=== PATIENT | female | born 1970 | race Caucasian/White ===

== ENCOUNTER 2019-12-24 08:28 | Inpatient (IN) ==
--- NOTE | 2019-12-07 15:10 | PAT Medication Instructions ---
Medication Instructions Date of Service December 07, 2019 Home Medications Botox 1 dose IM UD Probiotic 1 cap PO TID albuterol sulfate 1 inh INHALATION QID PRN ascorbic acid (vitamin C) [Vitamin C] 500 mg PO QAM budesonide-formoterol [Symbicort] 2 puff INHALATION BID buspirone [BuSpar] 15 mg PO TID calcium 600 mg PO BID cholecalciferol (vitamin D3) [Vitamin D3] 25 mcg PO QAM empagliflozin [Jardiance] 10 mg PO QAM levomilnacipran [Fetzima] 120 mg PO QAM magnesium 15 mg PO HS montelukast [Singulair] 10 mg PO QAM oxcarbazepine [Trileptal] 300 mg PO HS potassium chloride 20 meq PO BID sitagliptin [Januvia] 100 mg PO QAM spironolactone [Aldactone] 25 mg PO BID Continue as directed Botox 1 dose IM UD DO NOT take the morning of surgery Probiotic 1 cap PO TID ascorbic acid (vitamin C) [Vitamin C] 500 mg PO QAM calcium 600 mg PO BID cholecalciferol (vitamin D3) [Vitamin D3] 25 mcg PO QAM empagliflozin [Jardiance] 10 mg PO QAM montelukast [Singulair] 10 mg PO QAM potassium chloride 20 meq PO BID sitagliptin [Januvia] 100 mg PO QAM spironolactone [Aldactone] 25 mg PO BID Take morning of surgery With a small sip of water, OTHERWISE NOTHING TO EAT OR DRINK AFTER MIDNIGHT: albuterol sulfate 1 inh INHALATION QID PRN (use if needed; please bring with you to hospital day of surgery if possible) budesonide-formoterol [Symbicort] 2 puff INHALATION BID buspirone [BuSpar] 15 mg PO TID levomilnacipran [Fetzima] 120 mg PO QAM Take evening before surgery Probiotic 1 cap PO TID albuterol sulfate 1 inh INHALATION QID PRN (if needed) budesonide-formoterol [Symbicort] 2 puff INHALATION BID buspirone [BuSpar] 15 mg PO TID calcium 600 mg PO BID magnesium 15 mg PO HS oxcarbazepine [Trileptal] 300 mg PO HS potassium chloride 20 meq PO BID spironolactone [Aldactone] 25 mg PO BID Other Notes If you have any questions please call us at [phone] or [phone] or [phone] or [phone]
--- NOTE | 2019-12-11 13:40 | Anesthesiology Consultation ---
Date of Service December 11, 2019 Assessment & Plan (1) Encounter for pre-operative examination: Chart Review Chart Review: Pending: Refer to Additional Notes / Consult section (pending surgeon ordered PCP clearance, possible stress/ECHO test, and preop Covid testing ) and Patient seen in Pre Admission Testing Awaiting for possible stress test/ECHO (faxing for copy if available) and PCP clearance. - Check BSG AM DOS Per PAT appt on 12/11/19, pt denies any recent travel. No known Covid positive contacts or Covid related symptoms. Per patient- scheduled for Covid testing 12/19/19. Educated on importance of self quarantining, social distancing and wearing mask in public both for the patient and household contacts. Teaching & Discussion Pre-Anesthesia Teaching/Discussion Notes: Instructed NPO after midnight before surgery,except medications with 15 cc of water. Medication instructions provided according to the [facility] guidelines. History Surgery Operation Date: 12/24/19 09:05 Proposed Procedures p L2-L3 Decompression Fusion, L3-S1 Hardware Removal, Spinal Cord Monitoring - Aime Norman DO Height/Weight Height: 5 ft 4 in Weight: 101.2 kg Allergies Allergy/AdvReac Type Severity Reaction Status Date / Time chicken derived Allergy Unknown Found with Verified 12/11/19 13:36 allergy testing- does still eat chicken latex Allergy Unknown RASH,ITCHY Verified 12/03/19 12:49 milk Allergy Unknown UNKNOWN Verified 12/03/19 12:49 prednisone Allergy Unknown UNKNOWN Verified 12/03/19 12:49 simvastatin Allergy Unknown UNKNOWN- Verified 12/03/19 12:49 [id number] Allergy Rash Verified 12/03/19 12:49 [From Ajovy Autoinjector] [id number] Allergy Rash Verified 12/03/19 12:49 [From Emgality Pen] Dust Allergy Unknown SOB,ITCHY Uncoded 12/03/19 12:49 Medications Home Medications Medication Instructions Recorded Confirmed Last Taken Botox 1 dose IM UD 12/03/19 12/03/19 Unknown Probiotic 1 cap PO TID 12/03/19 12/03/19 Unknown albuterol sulfate 1 inh INHALATION QID PRN 12/03/19 12/03/19 Unknown ascorbic acid (vitamin C) [Vitamin 500 mg PO QAM 12/03/19 12/03/19 Unknown C] budesonide-formoterol [Symbicort] 2 puff INHALATION BID 12/03/19 12/03/19 Unknown buspirone [BuSpar] 15 mg PO TID 12/03/19 12/03/19 Unknown calcium 600 mg PO BID 12/03/19 12/03/19 Unknown cholecalciferol (vitamin D3) 25 mcg PO QAM 12/03/19 12/03/19 Unknown [Vitamin D3] empagliflozin [Jardiance] 10 mg PO QAM 12/03/19 12/03/19 Unknown levomilnacipran [Fetzima] 120 mg PO QAM 12/03/19 12/03/19 Unknown magnesium 15 mg PO HS 12/03/19 12/03/19 Unknown montelukast [Singulair] 10 mg PO QAM 12/03/19 12/03/19 Unknown oxcarbazepine [Trileptal] 300 mg PO HS 12/03/19 12/03/19 Unknown potassium chloride 20 meq PO BID 12/03/19 12/03/19 Unknown sitagliptin [Januvia] 100 mg PO QAM 12/03/19 12/03/19 Unknown spironolactone [Aldactone] 25 mg PO BID 12/03/19 12/03/19 Unknown Past Medical History Medical History Anxiety Stable and controlled Asthma uses PRN inh 1 x wk on average - breathing stable and controlled Depression DM type 2 (diabetes mellitus, type 2) NIDDM- well controlled and stable Fatty liver Follows with liver specialist- LFTs stable Fibromyalgia Stable History of DVT (deep vein thrombosis) 2016 - RUE -- r/t picc line - was on AC x months - no issues x years since being off AC History of kidney stones No current issues Migraines Post-operative nausea and vomiting Sleep apnea non compliant with CPAP Exercise / Class Metabolic Activity II 4-5 Yardwork/Stairs/Walk up hill (ONE FLIGHT OF STAIRS - NO CHEST PAIN OR SOB ) Past Family History Family History Father Diabetes Mother Diabetes Grandmother (Paternal) Diabetes Grandfather (Paternal) Colon cancer Past Surgical History Surgical History History of abdominoplasty History of cholecystectomy History of colonoscopy History of cystoscopy with stone extraction History of esophagogastroduodenoscopy (EGD) History of foot surgery Rt History of hysterectomy with unilateral oophorectomy History of lumbar surgery x 2 History of lumpectomy of left breast History of myringotomy BMT History of tonsillectomy History of tooth extraction History of umbilical hernia repair Hx of fusion of cervical spine ROM WNL S/P PICC central line placement removed (had for infection following back surgery) Past Anesthesia History No Hx of Anesthesia Complications (with exception to PONV ) and No Family Hx of Anesthesia Complications History of PONV History of PONV and Hx of Motion Sickness (especially with long trips ) Social History Smoking Status: Never smoker Do You Dip or Chew Tobacco: No Hx Alcohol Use: No Hx Substance Use: No substance use type: does not use Review of Systems Patient denies chest pain, shortness of breath, dyspnea on exertion, reflux, cough, wheezing, palpitations. No hx of seizures, stroke, RI. No hx of blood transfusions Physical Exam Vital Signs VITALS BP 113/79 P 98 TEMP 98.1 SP02 100% RESP 16 Constitutional no acute distress ENMT Mouth: no TMJ clicking Thyromental Distance: > or= 3.5 Finger Breadths (3.5) Mallampati Class: II Full dentures on top Missing all bottom teeth Neck + thick neck (mild ); neck extension not limited Respiratory normal respiratory effort; no respiratory distress Auscultation: lungs clear to auscultation bilaterally; no wheezes Cardiovascular Rate/Rhythm: regular rate and regular rhythm Heart Sounds: no murmur Vessels: no carotid bruit Musculoskeletal Spine: no pain with cervical ROM Neurologic moves all extremities Psychiatric Orientation: alert Testing Laboratory Results PT 10.0 Seconds (9.0-12.0) 12/11/19 14:06 INR 0.9 (0.9-1.1) 12/11/19 14:06 APTT 26.4 Seconds (21.0-31.0) 12/11/19 14:06 Hemoglobin A1c 6.9 % (4.5-5.6) H 12/11/19 14:06 Urine Color Yellow 12/11/19 14:06 Urine Appearance Clear (Clear) 12/11/19 14:06 Urine pH 5.5 (4.5-7.5) 12/11/19 14:06 Ur Specific [place] 1.017 (1.000-1.030) 12/11/19 14:06 Urine Protein Negative (Negative) 12/11/19 14:06 Urine Glucose (UA) 3+ (Negative) H 12/11/19 14:06 Urine Ketones Negative (Negative) 12/11/19 14:06 Urine Nitrite Negative (Negative) 12/11/19 14:06 Ur Leukocyte Esterase Negative (Negative) 12/11/19 14:06 Blood Type A Positive 12/11/19 14:06 Antibody Screen NEGATIVE 12/11/19 14:06 11/29/19= WBC: 8.93 H/H: 15.4/48.4 PLATELETS: 323 SODIUM: 138 POTASSIUM: 3.8 CHLORIDE: 107 CO2: 25.0 BUN: 13.0 CREATININE: 1.00 GLUCOSE: 115 Electrocardiogram Date: 12/11/19 Sinus tachycardia with frequent PVCs at 115 bpm. Low voltage QRS. Compared to EKG from Feb 04, 2014- PVCs are now present, nonspecific T wave abnormality no longer evident in inferior leads per cardio. (By personal visual inspection- HR is between 70-100 bpm - not 115bpm. EKG will be sent for PCP to review at clearance appt) Chest X-Ray Date: 12/10/19 Findings: + NAD
--- NOTE | 2019-12-11 14:39 | XRay Report ---
TWO VIEW CHEST CLINICAL HISTORY: Preoperative examination. FINDINGS: PA and lateral chest radiographs are compared to study dated 03/03/2014. The cardiomediasti nal silhouette is unremarkable. The lungs and pleural spaces are clear. There is no pneumothorax. Th e bony thorax appears intact. Fusion hardware is noted in the lower cervical spine. IMPRESSION: No active disease in the chest. ACT 112: Negative or not required by law. Electronically signed by: Abhilash Squires M.D. 12/11/2019 2:38 PM
[2019-12-11 16:18] LABS: Appearance Urine Clear (Clear); Bilirubin Urine Negative (Negative); Blood Urine Negative (Negative); Color Urine Yellow; Glucose Urine UA 3+ (Negative); Ketones Urine Negative (Negative); Leukocyte Esterase Urine Negative (Negative); Nitrite Urine Negative (Negative); Protein Urine Negative (Negative); Specific Gravity Urine 1.017 (1.000-1.030); Urobilinogen Urine Negative (Negative); pH Urine 5.5 (4.5-7.5)
[2019-12-11 16:29] LABS: INR 0.9 (0.9-1.1); Partial Thromboplastin Ratio 0.9; Partial Thromboplastin Time 26.4 Seconds (21.0-31.0)
--- NOTE | 2019-12-11 17:35 | Electrocardiogram Report ---
Test Reason : Blood Pressure : / mmHG Vent. Rate : 115 BPM Atrial Rate : 115 BPM P-R Int : 126 ms QRS Dur : 078 ms QT Int : 356 ms P-R-T Axes : 052 -03 047 degrees QTc Int : 492 ms Sinus tachycardia with frequent Premature ventricular complexes Low voltage QRS Borderline ECG When compared with ECG of 04-FEB-2014 14:20, Premature ventricular complexes are now Present Nonspecific T wave abnormality no longer evident in Inferior leads Confirmed by Thom De Oliveira ([id number]) on 12/11/2019 5:34:57 PM Referred By: Aime Norman Confirmed By:Adrián De Oliveira
[2019-12-12 06:01] LABS: Estimated Average Glucose 151 mg/dl; Hemoglobin A1C 6.9 % (4.5-5.6)
[~2019-12-24 08:28] MED LIST: ACETAMINOPHEN 500 MG TAB PO SCH; CeleBREX 200 MG CAP PO SCH; GABAPENTIN 900 MG DOSE PO SCH; LR 15ML/HR IV SCH; MIDAZOLAM HCL 1 MG/ML 2ML VIAL ONE; ceFAZolin 2000MG 2,000 MG/15 ML SYR IV SCH; fentaNYL citrate 100 MCG/2 ML VIAL ONE
--- OUTSIDE RECORDS SUMMARY | 2019-12-24 08:32 | External Medical Summary | Continuity of Care Document ---
:1970 Author Name Eddi Silva Address Unavailable Unavailable , Care Team Providers Name Role Phone Brennen Mercado M.D. Unavailable [email or web address], UNKNOWN Unavailable Unavailable Problems Diabetes mellitus (250.00) (E11.9) Wound, surgical, infected (998.59) (T81.49XA) Allergies and Adverse Reactions predniSONE TABS (Allergy) Simvastatin TABS (Allergy) Dust (Allergy) Eggs (Allergy) Latex (Allergy) Milk (Allergy) Medications oxyCODONE HCl - 5 MG Oral Capsule Refills: 0 Albuterol Sulfate HFA AERS Refills: 0 Symbicort 160-4.5 MCG/ACT Inhalation Aer osol; INHALE 2 PUFFS TWICE DAILY. RINSE MOUTH AFTER USE. Refills: 0 busPIRone HCl - 5 MG Oral Tablet; 1 PO QID Refills: 0 Vitamin D3 50 MCG (2000 UT) Oral Capsule; 1 po daily Refills: 0 Fish Oil 1000 MG Oral Capsule; TAKE 1 CAPSULE DAILY. Refills: 0 Flonase 50 MCG/ACT SUSP; USE DIRECTED. Refills: 0 Gabapentin 300 MG TABS; TAKE 1 TABLET 3 TIMES DAILY. Refills: 0 LaMICtal 100 MG Oral Tablet; TAKE 1 TABLET DAILY. Refills: 0 Fetzima 80 MG Oral Capsule Extended Release 24 Hour; 1 po BI D Refills: 0 Magnesium Oxide 250 MG Oral Tablet; USE DIRECTED. Refills: 0 metFORMIN HCl ER 500 MG Oral Tablet Extended Release 24 Hour ; 1 po BID Refills: 0 Zofran TABS; TID prn for nausea Refills: 0 Pantoprazole Sodium 40 MG Oral Tablet Delayed Release; TAKE 1 TABLET DAILY. Refills: 0 Potassium Chloride ER 20 MEQ Oral Tablet Extended Release; 2 0 meq po QID Refills: 0 Spironolactone 25 MG Oral Tablet; TAKE 1 TABLET TWICE DAILY. Refills: 0 Topamax 50 MG Oral Tablet; 1 PO in am2 PO qHS Refills: 0 Cyanocobalamin 1000 MCG TABS; TAKE 1 TABLET DAILY DIRECTE D. Refills: 0 Procedures History of Laminectomy Lumbar Status: Co mpleted History of Tonsillectomy Status: Complet ed History of Cholecystectomy Status: Compl eted History of Gastric Surgery For Morbid Obesity Gastric Bypass Status: Completed Immunizations Immunizations not documented Social History - Smoking Status Never smoked tobacco Plan of Treatment Planned Observations Planned Goals not documented Results No Known Results Results not documented
[2019-12-24] MEDS ORDERED: SCOPOLAMINE 1.5 MG TDSY TD ONE ×2 (09:28→09:30)
[2019-12-24] MEDS ORDERED: ALBUTEROL 0.083% NEBU SOLN 3 ML VIAL INH PRN (09:30)
[2019-12-24] MEDS ORDERED: ATROPINE SULFATE 0.1 MG/ML 10ML SYR IV PRN (09:30)
[2019-12-24] MEDS ORDERED: ONDANSETRON INJ 2 MG/ML 2 ML VIAL IV PRN ×2 (09:30→14:01)
[2019-12-24] MEDS ORDERED: PROMETHAZINE HCL 12.5 MG in SODIUM CHLORIDE 0.9% 50 ML IV PRN ×2 (09:30→14:01)
[2019-12-24] MEDS ORDERED: LABETALOL HCL IV 5 MG/ML 20ML IV PRN (09:30)
[2019-12-24] MEDS ORDERED: HYDROmorphone INJ 1 MG/ML SYRINGE IV PRN ×2 (09:30→14:01)
--- NOTE | 2019-12-24 09:46 | History & Physical Bridge Note ---
Date of Service December 24, 2019 History & Physical Bridge Note I have examined the patient, reviewed the History & Physical and in the interval since the performance of the History & Physical I have noted the following changes of clinical significance: no changes noted
--- NOTE | 2019-12-24 09:47 | History & Physical Report ---
Date of Service December 24, 2019 Assessment & Plan (1) Neurogenic claudication due to lumbar spinal stenosis: Admission and Anticipated Discharge Date Admission Date: L2-L3 decompression fusion, L3-S1 hardware removal History of Present Illness Chief Complaint: Back and leg pain Primary Care Provider: Parvez Almeida This is a 49-year-old female who presents with worsening back and leg pain. After failing course of nonoperative care is here for surgical intervention. Allergies Allergy/AdvReac Type Severity Reaction Status Date / Time chicken derived Allergy Unknown Found with Verified 12/24/19 08:52 allergy testing- does still eat chicken latex Allergy Unknown RASH,ITCHY Verified 12/24/19 08:52 milk Allergy Unknown UNKNOWN Verified 12/24/19 08:52 prednisone Allergy Unknown UNKNOWN Verified 12/24/19 08:52 simvastatin Allergy Unknown UNKNOWN- Verified 12/24/19 08:52 fremanezumab-vfrm Allergy Rash Verified 12/24/19 08:52 [From Ajovy Autoinjector] galcanezumab-gnlm Allergy Rash Verified 12/24/19 08:52 [From Emgality Pen] Dust Allergy Unknown SOB,ITCHY Uncoded 12/24/19 08:52 Home Medications Home Medications Medication Instructions Recorded Confirmed Type Botox 1 dose IM DIRECTED 12/03/19 12/24/19 History Probiotic 1 cap PO TID 12/03/19 12/24/19 History albuterol sulfate 1 inh INHALATION QID PRN 12/03/19 12/24/19 History ascorbic acid (vitamin C) [Vitamin 500 mg PO QAM 12/03/19 12/24/19 History C] budesonide-formoterol [Symbicort] 2 puff INHALATION BID 12/03/19 12/24/19 History buspirone [BuSpar] 15 mg PO BID 12/03/19 12/24/19 History calcium 600 mg PO BID 12/03/19 12/24/19 History cholecalciferol (vitamin D3) 25 mcg PO QAM 12/03/19 12/24/19 History [Vitamin D3] empagliflozin [Jardiance] 10 mg PO QAM 12/03/19 12/24/19 History levomilnacipran [Fetzima] 120 mg PO QAM 12/03/19 12/24/19 History magnesium 15 mg PO HS 12/03/19 12/24/19 History montelukast [Singulair] 10 mg PO QAM 12/03/19 12/24/19 History oxcarbazepine [Trileptal] 300 mg PO HS 12/03/19 12/24/19 History potassium chloride 20 meq PO BID 12/03/19 12/24/19 History sitagliptin [Januvia] 100 mg PO QAM 12/03/19 12/24/19 History spironolactone [Aldactone] 25 mg PO BID 12/03/19 12/24/19 History Past Med/Surg History Medical History Anxiety Stable and controlled Asthma uses PRN inh 1 x wk on average - breathing stable and controlled Depression DM type 2 (diabetes mellitus, type 2) NIDDM- well controlled and stable Fatty liver Follows with liver specialist- LFTs stable Fibromyalgia Stable History of DVT (deep vein thrombosis) 2015 - RU -- r/t picc line - was on AC x months - no issues x years since being off AC History of kidney stones No current issues Migraines Post-operative nausea and vomiting Sleep apnea non compliant with CPAP Surgical History History of abdominoplasty History of cholecystectomy History of colonoscopy History of cystoscopy with stone extraction History of esophagogastroduodenoscopy (EGD) History of foot surgery Rt History of hysterectomy with unilateral oophorectomy History of lumbar surgery x 2 History of lumpectomy of left breast History of myringotomy BMT History of tonsillectomy History of tooth extraction History of umbilical hernia repair Hx of fusion of cervical spine ROM WNL S/P PICC central line placement removed (had for infection following back surgery) Family History Father Diabetes Mother Diabetes Grandmother (Paternal) Diabetes Grandfather (Paternal) Colon cancer Social History Smoking Status: Never smoker Second Hand Exposure: Yes; Do You Dip or Chew Tobacco: No; Hx Alcohol Use: No Hx Substance Use: No Preferred Language: Fijian Communication Ability: Effective 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
[2019-12-24] MEDS ORDERED: BUPIVACAINE 0.5 % 5 MG/1 ML MPF 30ML VIAL ONE (09:49)
[2019-12-24] MEDS ORDERED: BACITRACIN INJ 50,000 UNIT VIAL ONE (09:49)
[2019-12-24] MEDS ORDERED: EPINEPHrine INJ 1 MG/ML AMP ONE (09:50)
[2019-12-24] MEDS ORDERED: HYDROmorphone INJ 2 MG/ML SYR/VIAL ONE (09:54)
[2019-12-24] MEDS ORDERED: VANCOMYCIN HCL 1000MG/20ML VIAL ONE (10:12)
[2019-12-24] MEDS ORDERED: GENTAMICIN SULFATE 40 MG/ML 2 ML VIAL ONE (10:13)
[2019-12-24] MEDS ORDERED: DEXAMETHASONE SOD INJ 4 MG/ML VIAL ONE (10:36)
[2019-12-24] MEDS ORDERED: ROCURONIUM BROMIDE 10 MG/ML 5 ML VIAL IV ONE (10:36)
[2019-12-24] MEDS ORDERED: ONDANSETRON INJ 2 MG/ML 2 ML VIAL ONE (10:36)
[2019-12-24] MEDS ORDERED: LARYING-O-JET KIT (LTA) ONE (10:36)
[2019-12-24] MEDS ORDERED: LIDOCAINE HCL 2% 2 ML VIAL/AMP(20MG/ML) INFIL ONE (10:36)
[2019-12-24] MEDS ORDERED: PHENYLEPHRINE 100MCG/ML 5ML SYR ONE (10:36)
[2019-12-24] MEDS ORDERED: PROPOFOL IV EMULSION 10 MG/ML 20 ML VIAL IV ONE (10:36)
[2019-12-24] MEDS ORDERED: FLOSEAL HEMOSTATIC MATRIX 10ML TOP ONE (12:04)
--- NOTE | 2019-12-24 12:19 | Operative Report ---
Post Operative Report Pre & Post Diagnosis Operation Date: 12/24/19 10:05 Pre-Op Diagnosis: Intervertebral Disc Degeneration, Lumbar Region Post-Op Diagnosis: Intervertebral Disc Degeneration, Lumbar Region I identified the patient and participated in the time-out.: Yes Procedure Operation Date: 12/24/19 10:05 Actual Procedures #1 removal of posterior segmental instrumentation L3-S1. #2 exploration of fusion L3-S1. #3 lumbar decompression with bilateral medial facetectomies and foraminotomies L1 to and L2-3. #4 posterior spinal fusion L2-3. #5 placement posterior instrumentation L2-3. #6 interbody fusion L2-3. #7 placement peek cage 13 x 26 mm L2-3. #8 placement of locally harvested morselized autograft in the posterior gutters. #9 placement infuse collagen sponge, master graft in the posterior gutters ostial amp interbody space. Surgeon Aime Norman, Pre Press Proofer Zo Maurice Estimated Blood Loss 100 Findings See Below The patient is 5 foot 4 weighing over 99 kg with a BMI in excess of 37. The patient's body habitus did add significant technical difficulty requiring her deepest retractors longus instruments in order to perform her procedure. This had at least 50% increase to the operative time. Specimens None Indications This is a 49-year-old female well-known to me the presents with marked decline in status. After failing course of nonoperative care she is here for surgical invention. Description of Procedure Patient was met with identified informed consent obtained. Patient was then taken to the operative suite underwent an patient placed in a prone position on the Brian table on top of the Lonnie frame. All bony prominences well-padded eyes inspected to ensure no external pressure placed upon the. This point the lumbar spine was prepped and draped in normal sterile fashion. Sharp dissection with the assistance of Bovie cautery was performed down to and exposing the lamina and transverse processes of L2 and the instrumentation at L3-L4-L5 and S1 levels bilaterally. Then proceeded to move the hardware bilaterally explore the fusion mass noting it to be mature and intact. And then performed complete laminectomy L2 partial laminectomy of L1 including bilateral medial facetectomies and foraminotomies addressing severe spinal stenosis. Pedicle screws were then placed in L to L3 bilaterally with assistance of fluoroscopy and the proper sized lashell placed. By way of a transforaminal approach on the left complete discectomy of L2-3 was performed endplates curetted to subcortical bleeding bone and a 13 x 26 mm peek cage filled with osteobone graft tapped in position. The rods were then locked into position bilaterally. The transverse processes of L2 and L3 burred to subcortical bleeding bone. Infuse collagen sponge master graft local autograft was placed in the posterior lateral gutters. 15 round JAYME drain inserted. Approximately 5 cc of stimulant beads impregnated with vancomycin and gentamicin were then placed throughout the wound. It was then closed with Vicryl in the fascia 2-0 Vicryl subcutaneously and 4 Monocryl for final skin closure. Steri-Strip sterile dressings placed. Patient waken taken to PACU stable condition. Please note spinal cord monitoring was utilized at the procedure no changes noted. Radha Maurice was present at the entire surgery involved in patient positioning complex portions of the surgery and final skin closure. I attest to the content of the Intraoperative Record and any orders documented therein. Any exceptions are noted below.
--- NOTE | 2019-12-24 12:44 | Fluoroscopy Report ---
FL lumbar spine 2-3V CLINICAL HISTORY: L3-S1 REMOVE HARDWARE/L2-3 DECOMPRESSION/FUSION/INTERBODY COMPARISON STUDY: Lumbar spine MRI February 26, 2014. FLUOROSCOPY TIME: 15 seconds. FLUOROSCOPIC IMAGES: 2 FINDINGS: There is previous multilevel discectomy and fusion noted at the L3-L4, L4-L5 and L5-S1 leve ls. Previous hardware has been removed. There is an interval L2-L3 discectomy with interbody spacer p lacement. Posterior decompression is noted. Bilateral pedicle screw fusion from L2 through L3 is note d. Hardware is intact. IMPRESSION: Fluoroscopy provided for interval L2-L3 discectomy, posterior decompression and bilatera l pedicle screw fusion. ACT 112: Negative or not required by law. Electronically signed by: John Trammell M.D. 12/24/2019 12:43 PM
--- NOTE | 2019-12-24 13:24 | Anesthesiology Progress Note ---
Date of Service December 24, 2019 Anesthesia Post Procedure Vital Signs Vital Signs: Temp Pulse Pulse Resp BP BP Pulse Ox 12/24/19 13:10 105 H 12 134/66 97 12/24/19 13:00 101 H 12 129/71 99 12/24/19 12:50 105 H 12 127/66 99 12/24/19 12:40 117 H 12 130/68 99 12/24/19 12:39 36.2 C L 116 H 12 142/70 H 99 12/24/19 09:07 36.9 C 99 H 18 126/83 99 Pain Intensity Back: Pain Intensity: 9 Transfer of Care Handoff Completed per policy Notes Mental Status: alert / awake / arousable Patient Amnestic to Procedure: Yes Nausea / Vomiting: adequately controlled Pain: adequately controlled Airway Patency, RR, SpO2: stable & adequate BP & HR: stable & adequate Hydration State: stable & adequate Anesthetic Complications: no major complications apparent
[2019-12-24] MEDS ORDERED: DO NOT ADMINISTER PNEUMOCOCCAL VACCINE PRN (14:01)
[2019-12-24] MEDS ORDERED: HYDROmorphone INJ 0.5 MG/0.5 ML SYR IV PRN (14:01)
[2019-12-24] MEDS ORDERED: SOD PHOSPHATE/SOD BIPHOSPHATE ENEMA 132 ML BTL PR PRN (14:01)
[2019-12-24] MEDS ORDERED: ONDANSETRON 4 MG OD TAB PO PRN (14:01)
[2019-12-24] MEDS ORDERED: LORazepam 0.5 MG/1 ML VIAL IV PRN (14:01)
[2019-12-24] MEDS ORDERED: MAGNESIUM HYDROXIDE SUSP 30 ML UDC PO PRN (14:01)
[2019-12-24] MEDS ORDERED: ALUMINUM/MAGNESIUM SUSP 30 ML UDC PO PRN (14:01)
[2019-12-24] MEDS ORDERED: FAMOTIDINE 20 MG TAB PO PRN (14:01)
[2019-12-24] MEDS ORDERED: NALOXONE HCL 0.4 MG/1 ML VIAL/CARP IV PRN (14:01)
[2019-12-24] MEDS ORDERED: LORazepam 0.5 MG TAB PO PRN (14:01)
[2019-12-24] MEDS ORDERED: hydrOXYzine HCl 25 MG TAB PO PRN (14:01)
[2019-12-24] MEDS ORDERED: ACETAMINOPHEN 1,000 MG/100 ML VIAL IV PRN (14:01)
[2019-12-24] MEDS ORDERED: diphenhydrAMINE Capsule 25 MG CAP PO PRN (14:01)
[2019-12-24] MEDS ORDERED: METOCLOPRAMIDE HCL INJ 5 MG/ML 2 ML VIAL IV PRN (14:01)
[2019-12-24] MEDS ORDERED: ACETAMINOPHEN 500 MG TAB PO PRN (14:01)
[2019-12-24] MEDS ORDERED: DO NOT ADMINISTER FLU VACCINE PRN (14:01)
[2019-12-24] MEDS ORDERED: bisacodyL 10 MG SUPP PR PRN (14:01)
[2019-12-24] MEDS ORDERED: traMADol HCL 50 MG TABLET PO PRN (14:01)
[2019-12-24] MEDS ORDERED: PHARMACY GLYCEMIC MGMT CONSULT PRN (14:18)
--- NOTE | 2019-12-24 14:33 | Pharmacy Report ---
Glycemic Control Consultation - Date of Service December 24, 2019 - Scope Scope: Glycemic Pharmacist consulted for glycemic control and to write orders per [facility] inpatient glycemic control protocol. - Objective Weight: 99.507 kg Accuchecks BSG (last 24hrs): 12/24/19 12/24/19 12/24/19 08:43 12:45 14:13 POC Glucose 112 H 154 H 213 H HbA1c: Hemoglobin A1c 6.9 % (4.5-5.6) H 12/11/19 14:06 - Recent Pertinent Medications Outpatient Anti-diabetic Regimen: * Emeka Isbell * A1c = 6.9 % 12/11/19 Risk Factors for Insulin Resistance: * Steroids: Dxm iv * Recent Surgery: POD 0 * Diet: clears - Assessment & Plan Assessment & Plan: ASSESSMENT: * 49 year old, type 2 diabetic now s/p lumbar surgery, POD 0. Pharmacy consulted for glycemic management. Patient received steroids intraop therefore anticipate steroid induced hyperglycemia * Plan to utilize basal/bolus insulin postop PLAN FOR INPATIENT GLYCEMIC CONTROL: * Holding outpatient oral diabetes medications * Basal insulin * NPH 20 units x 1 (0.2 units/kg) to cover steroids * Bolus insulin * NovoLog per scale ACHS or Q6hrs while NPO * Goal Range: Low 110 mg/dL - High 140 mg/dL * Correction Factor: 20 mg/dL/unit * Nutritional / Prandial insulin per carb ratio of 1 unit per 6 grams CHO consumed * Please note that the plan above was derived based on current level of insulin resistance and hospital stress. These recommendations are appropriate for inpatient admission only. Plan of care upon discharge will need to be reassessed to avoid potential outpatient hypo/hyperglycemia. Thank you.
[2019-12-24] MEDS ORDERED: GLUCOSE 10 TABS/TUBE PO PRN (14:45)
[2019-12-24] MEDS ORDERED: GLUCOSE 40% GEL 15 GM TUBE PO PRN (14:45)
[2019-12-24] MEDS ORDERED: CARBOHYDRATES FOR HYPOGLYCEMIA PO PRN (14:45)
[2019-12-24] MEDS ORDERED: GLUCAGON FOR INJ 1 MG VIAL IM PRN (14:45)
[2019-12-24] MEDS ORDERED: DEXTROSE 50% 50 ML SYRINGE IV PRN (14:45)
[2019-12-24] MEDS ORDERED: NovoLIN-N (NPH) PER UNIT CHARGE SQ ONE (14:45)
[2019-12-24] MEDS: INSULIN ASPART 100 UNITS/ML 3 ML PEN SC SCH ×3 (15:07→21:05)
[2019-12-24 15:25] LABS: Creatinine Clr Calc Pharmacy 76.6 ml/min; Est GFR (African American) 74.4; Est GFR (Non-African American) 64.2
--- NOTE | 2019-12-24 16:01 | Hospitalist Consultation ---
Date of Consultation December 24, 2019 Assessment & Plan (1) Neurogenic claudication due to lumbar spinal stenosis: s/p L3-S1 Hardware Removal, Spinal Cord Monitoring (2) DM type 2 (diabetes mellitus, type 2): pt will be on ssi, holding jardiance (3) Asthma: continue singulair (4) Migraines: continue tripletal History of Present Illness Attending Physician: Aime Norman, DO 12/24/19, L2-L3 Decompression Fusion, L3-S1 Hardware Removal, Spinal Cord Monitoring Pt was seen postoperatively, she has a full JAYME drain, mild nausea, getting some zofran, has less buttock pain than pre op Allergies Allergy/AdvReac Type Severity Reaction Status Date / Time latex Allergy Unknown RASH,ITCHY Verified 12/24/19 08:52 prednisone Allergy Unknown UNKNOWN Verified 12/24/19 08:52 simvastatin Allergy Unknown UNKNOWN- Verified 12/24/19 08:52 fremanezumab-vfrm Allergy Rash Verified 12/24/19 08:52 [From Ajovy Autoinjector] galcanezumab-gnlm Allergy Rash Verified 12/24/19 08:52 [From Emgality Pen] Dust Allergy Unknown SOB,ITCHY Uncoded 12/24/19 08:52 Home Medications Home Medications Medication Instructions Recorded Confirmed Type Botox 1 dose IM DIRECTED 12/03/19 12/24/19 History Probiotic 1 cap PO TID 12/03/19 12/24/19 History albuterol sulfate 1 inh INHALATION QID PRN 12/03/19 12/24/19 History ascorbic acid (vitamin C) [Vitamin 500 mg PO QAM 12/03/19 12/24/19 History C] budesonide-formoterol [Symbicort] 2 puff INHALATION BID 12/03/19 12/24/19 History buspirone [BuSpar] 15 mg PO BID 12/03/19 12/24/19 History calcium 600 mg PO BID 12/03/19 12/24/19 History cholecalciferol (vitamin D3) 25 mcg PO QAM 12/03/19 12/24/19 History [Vitamin D3] empagliflozin [Jardiance] 10 mg PO QAM 12/03/19 12/24/19 History levomilnacipran [Fetzima] 120 mg PO QAM 12/03/19 12/24/19 History magnesium 15 mg PO HS 12/03/19 12/24/19 History montelukast [Singulair] 10 mg PO QAM 12/03/19 12/24/19 History oxcarbazepine [Trileptal] 300 mg PO HS 12/03/19 12/24/19 History potassium chloride 20 meq PO BID 12/03/19 12/24/19 History sitagliptin [Januvia] 100 mg PO QAM 12/03/19 12/24/19 History spironolactone [Aldactone] 25 mg PO BID 12/03/19 12/24/19 History Patient History Medical History (Updated 12/24/19 @ 16:44 by Alvaro Hodges MD) Anxiety Stable and controlled Asthma uses PRN inh 1 x wk on average - breathing stable and controlled Depression DM type 2 (diabetes mellitus, type 2) NIDDM- well controlled and stable Fatty liver Follows with liver specialist- LFTs stable Fibromyalgia Stable History of DVT (deep vein thrombosis) 2016 - RUE -- r/t picc line - was on AC x months - no issues x years since being off AC History of kidney stones No current issues Hyperlipemia Migraines Sleep apnea non compliant with CPAP Surgical History History of abdominoplasty History of cholecystectomy History of colonoscopy History of cystoscopy with stone extraction History of esophagogastroduodenoscopy (EGD) History of foot surgery Rt History of hysterectomy with unilateral oophorectomy History of lumbar surgery x 2 History of lumpectomy of left breast History of myringotomy BMT History of tonsillectomy History of tooth extraction History of umbilical hernia repair Hx of fusion of cervical spine ROM WNL Post-operative nausea and vomiting S/P PICC central line placement removed (had for infection following back surgery) Family History Father Diabetes Mother Diabetes Grandmother (Paternal) Diabetes Grandfather (Paternal) Colon cancer Social History Smoking Status: Never smoker Second Hand Exposure: Yes; Do You Dip or Chew Tobacco: No; Hx Alcohol Use: No Hx Substance Use: No Preferred Language: Danish Communication Ability: Effective Rice Farmer Required: No Beliefs That Will Affect Care: None Current Living Situation: Spouse Current Living Situation Comment: and children Feels Safe at Home: Yes Safety Concerns: Feels Safe At This Time Assistive Devices: Contacts, CPAP, Denture - Upper and Glasses Review of Systems Review of Systems: Mild distress and fatigue no headache, blurry or double vision no speech or swallowing issues no chest pain, pressure or palpitations no shortness of breath, cough or wheezes no abdominal pain, mild nausea without vomiting no dysuria, hematuria or frequency no focal joint pain or swelling mild back pain, CVA tenderness or radicular pain no bruising, bleeding or rashes no focal signs of weakness or numbness or altered sensation no complaints of anxiety or depression. Physical Exam Physical Exam: The patient appeared well nourished and normally developed. Vital signs as documented. Head exam is normocephalic atraumatic no scleral icterus Neck is without JVD, thyromegaly, or carotid bruits. Lungs are clear to auscultation, no focal loss of breath sounds Cardiac exam, Rhythm is regular.. No murmurs, rubs or gallops. Abdominal exam reveals normal bowel sounds, soft non tender, no masses Extremities are nonedematous and both pedal pulses are present Neurologic exam is alert and oriented, no focal loss of strength or sensation Skin is without bruises or rashes Psychologically is without concerns for anxiety or depression. Results & Data Results & Data ([facility]) Vital Signs (Past 12 Hours) Vital Signs Temp Pulse Pulse Resp BP BP Pulse Ox 12/24/19 15:09 97.5 F L 101 H 17 102/67 98 12/24/19 14:34 104 H 16 135/75 98 12/24/19 14:03 98.2 F 109 H 16 128/73 99 12/24/19 13:40 102 H 12 126/60 98 12/24/19 13:30 101 H 12 150/67 H 98 12/24/19 13:20 98.1 F 100 H 12 127/70 98 12/24/19 13:10 105 H 12 134/66 97 12/24/19 13:00 101 H 12 129/71 99 12/24/19 12:50 105 H 12 127/66 99 12/24/19 12:40 117 H 12 130/68 99 12/24/19 12:39 97.2 F L 116 H 12 142/70 H 99 12/24/19 09:07 98.4 F 99 H 18 126/83 99 PG Care Time/CCT Total # of Minutes Spent Total Time Spent with Patient: Total time spent is greater than 50% in coordination of care (as documented) at patient's floor/unit and/or counseling patient: Coding Level of Care Code 30033 Inpt Consult Level 2 Diagnoses Neurogenic claudication due to lumbar spinal stenosis M48.062 DM type 2 (diabetes mellitus, type 2) E11.9 Asthma J45.909 Migraines G43.909
[2019-12-24] MEDS: KETOROLAC 30 MG/ML VIAL IV SCH ×2 (16:08→21:05)
[2019-12-24] MEDS: CHECK SCOPOLAMINE PATCH PLACEMENT SCH (16:09)
[2019-12-24] MEDS: SODIUM CHLORIDE 0.9% 1000ML 1,000 ML IV SCH (18:57)
[2019-12-24] MEDS: ceFAZolin 2000MG 2,000 MG/15 ML SYR IV SCH (18:58)
[2019-12-24] MEDS: POTASSIUM CHLORIDE 20 MEQ TABCR PO SCH (21:04)
[2019-12-24] MEDS: SPIRONOLACTONE 25 MG TAB PO SCH (21:04)
[2019-12-24] MEDS: CALCIUM CARBONATE 1250MG TAB PO SCH (21:04)
[2019-12-24] MEDS: OXcarbazepine 150 MG TABLET PO SCH (21:04)
[2019-12-24] MEDS: MAGNESIUM OXIDE 400 MG TAB PO SCH (21:04)
[2019-12-24] MEDS: busPIRone 15 MG TAB PO SCH (21:04)
[2019-12-24] MEDS: ADVANCED PROBIOTIC 1250 MG CAPSULE PO SCH (21:04)
[2019-12-24] MEDS: DOCUSATE SODIUM/SENNA 50/8.6MG TAB PO SCH (21:05)
[2019-12-25] MEDS: oxyCODONE HCL IR 5 MG TAB (IMMEDIATE RELEASE) PO PRN ×3 (00:05→17:38)
[2019-12-25] MEDS: INSULIN ASPART 100 UNITS/ML 3 ML PEN SC SCH ×6 (00:10→20:55)
[2019-12-25] MEDS: SODIUM CHLORIDE 0.9% 1000ML 1,000 ML IV SCH ×2 (00:12→00:32)
[2019-12-25] MEDS: CHECK SCOPOLAMINE PATCH PLACEMENT SCH ×3 (00:30→17:39)
[2019-12-25] MEDS: ceFAZolin 2000MG 2,000 MG/15 ML SYR IV SCH (02:24)
[2019-12-25] MEDS: KETOROLAC 30 MG/ML VIAL IV SCH ×2 (03:54→08:28)
[2019-12-25] MEDS: POLYETHYLENE (MIRALAX) 17 GM PACK PO SCH ×3 (05:30→17:38)
[2019-12-25 05:53] LABS: Basophils # (auto) 0.01 K/uL (0-0.2); Basophils % (auto) 0.1 %; Eosinophils # (auto) 0.05 K/uL (0-0.5); Eosinophils % (auto) 0.4 %; Hematocrit (blood only) 37.3 % (37-47); Hemoglobin 11.6 g/dL (12.0-16.0); Immature Granulocytes # (auto) 0.02 K/uL (0.00-0.02); Immature Granulocytes % (auto) 0.1 %; Lymphocytes # (auto) 2.34 K/uL (1.2-3.4); Lymphocytes % (auto) 16.6 %; Mean Corpuscular Hemoglobin 28.8 pg (25-34); Mean Corpuscular Hgb Conc 31.1 g/dL (32-36); Mean Corpuscular Volume 92.6 fL (80-100); Mean Platelet Volume 10.4 fL (7.4-10.4); Monocytes # (auto) 1.36 K/uL (0.11-0.59); Monocytes % (auto) 9.7 %; Neutrophils # (auto) 10.31 K/uL (1.4-6.5); Neutrophils % (auto) 73.1 %; Platelet Count 287 K/uL (130-400); RDW Coefficient of Variation 13.6 % (11.5-14.5); RDW Standard Deviation 46.3 fL (36.4-46.3); Red Blood Count 4.03 M/uL (4.2-5.4); White Blood Count 14.09 K/uL (4.8-10.8)
[2019-12-25 06:16] LABS: BUN Creatinine Ratio 17.5 (10-20); Calcium 8.3 mg/dl (8.5-10.1); Creatinine Clr Calc Pharmacy 93.9 ml/min; Est GFR (African American) 95.3; Est GFR (Non-African American) 82.2; Potassium 4.1 mmol/L (3.5-5.1)
[2019-12-25] MEDS: SPIRONOLACTONE 25 MG TAB PO SCH ×2 (08:28→20:49)
[2019-12-25] MEDS: ADVANCED PROBIOTIC 1250 MG CAPSULE PO SCH ×3 (08:28→20:52)
[2019-12-25] MEDS: CHOLECALCIFEROL 1,000 UNITS 25 MCG TAB PO SCH (08:29)
[2019-12-25] MEDS: CALCIUM CARBONATE 1250MG TAB PO SCH ×2 (08:29→20:49)
[2019-12-25] MEDS: FETZIMA PO SCH (08:29)
[2019-12-25] MEDS: busPIRone 15 MG TAB PO SCH ×2 (08:30→20:49)
[2019-12-25] MEDS: FLUTICASONE/VILANTEROL 200/25MCG 14 PUFFS/INHALER INH SCH (08:30)
[2019-12-25] MEDS: ASCORBIC ACID 500 MG TAB PO SCH (08:30)
[2019-12-25] MEDS: POTASSIUM CHLORIDE 20 MEQ TABCR PO SCH ×2 (08:31→20:50)
[2019-12-25] MEDS ORDERED: SITagliptin PHOSPHATE 100 MG TAB PO SCH (09:00)
[2019-12-25] MEDS ORDERED: NON-FORMULARY MEDICATION (Empagliflozin [Jardiance] 10 MG) PO SCH (09:00)
[2019-12-25] MEDS: SITagliptin PHOSPHATE 100 MG TAB PO SCH (09:53)
--- NOTE | 2019-12-25 10:19 | Orthopedic Progress Note ---
Date of Service December 25, 2019 Assessment & Plan (1) Lumbar stenosis: Admission and Anticipated Discharge Date Admission Date: December 24, 2019 At this time we will continue physical therapy monitor her JAYME output anticipate discharge home tomorrow with home health. Subjective Back pain controlled leg symptoms markedly improved. Physical Exam Physical Exam: Patient is ambulating halls is good strength testing. Appears comfortable. Results & Data ([facility]) Vital Signs (Past 12 Hours) Vital Signs Temp Pulse Resp BP Pulse Ox 12/25/19 08:15 36.9 C 83 18 115/78 98 12/25/19 03:01 36.4 C L 87 16 104/69 98 12/25/19 00:04 36.3 C L 84 15 106/69 99
--- NOTE | 2019-12-25 12:54 | Anesthesiology Progress Note ---
Date of Service December 25, 2019 Anesthesia Post Procedure Vital Signs Vital Signs: Temp Pulse Pulse Resp BP Pulse Ox 12/25/19 08:15 36.9 C 83 18 115/78 98 12/25/19 03:01 36.4 C L 87 16 104/69 98 12/25/19 00:04 36.3 C L 84 15 106/69 99 12/24/19 20:41 36.9 C 92 H 18 105/69 97 12/24/19 17:02 36.9 C 91 H 16 99/66 L 96 12/24/19 15:59 83 16 145/89 H 99 12/24/19 15:09 36.4 C L 101 H 17 102/67 98 12/24/19 14:34 104 H 16 135/75 98 12/24/19 14:03 36.8 C 109 H 16 128/73 99 12/24/19 13:40 102 H 12 126/60 98 12/24/19 13:30 101 H 12 150/67 H 98 12/24/19 13:20 36.7 C 100 H 12 127/70 98 12/24/19 13:10 105 H 12 134/66 97 12/24/19 13:00 101 H 12 129/71 99 Pain Intensity Back: Pain Intensity: 5 Notes Mental Status: alert / awake / arousable and participated in evaluation Nausea / Vomiting: adequately controlled Pain: adequately controlled Airway Patency, RR, SpO2: stable & adequate BP & HR: stable & adequate Hydration State: stable & adequate Anesthetic Complications: no major complications apparent and Pt Satisfied with anesthetic care
--- NOTE | 2019-12-25 14:45 | Hospitalist Progress Note ---
Date of Service December 25, 2019 Assessment & Plan (1) Neurogenic claudication due to lumbar spinal stenosis: * POD#1 s/p L2-L3 decompression fusion, L3-S1 Hardware Removal with Dr. Norman. EBL 100cc. * PT/OT/pain management per primary service * h/h 11.6/37.3 -- acute blood loss from surgery/dilutional from IVF * CBC in AM (2) DM type 2 (diabetes mellitus, type 2): * Hold Jardiance * SSI while inpatient * BSGs acceptable (3) Asthma: * continue Singulair and Symbicort formulary substitute * Add on home albuterol HFA inhaler as needed * Stable -- 98% on RA and lungs clear to auscultation (4) Migraines: * None reported * Continue tripletal (5) History of DVT (deep vein thrombosis): * 2013 following back infection from surgery requiring PICC line for abx. was on anticoagulation -- no issues since that time DVT proph: SCDs. Chemo contraindicated given surgery Thank you for allowing hospitalist team to participate in the care of Ms. Zamora. Hospitalist team will sign off and just chart check. Please call with any questions/concerns. Admission and Anticipated Discharge Date Admission Date: December 24, 2019 Supervising Physician Co-Signing Physician Notes PA Supervision Note: I did not personally see or examine the patient today, but I verified all blanco points of ALEC Valladares's assessment and plan with the following exceptions/additions: None Subjective Patient evaluated this afternoon. Doing well. Pain present but just received medications. Passing gas and just took miralax x 2 and expecting BM shortly. Plans for discharge tomorrow with rehab at home. With regards to hx of DVT she states she had a RUE DVT 2013 following back surgery with Dr. Mosqueda and needed a PICC line for IV abx and was subsequently diagnosed UE DVT. She had been on blood thinner for 4-6 months and has had no issues since that time. No fever, chill, chest pain, shortness of breath, abdominal pain, nausea, vomiting, dysuria at this time. Review of Systems Review of Systems: All systems reviewed & are unremarkable except as noted in HPI & below Physical Exam Constitutional: WD/WN, vitals as above no acute distress Eyes: + anicteric sclerae and PERRL Neck: normal visual inspection and trachea midline Respiratory: normal respiratory effort, lungs clear to auscultation Cardiovascular: RRR, no murmur, no edema Gastrointestinal (Abdomen): normal bowel sounds, soft, nontender, no hepatos plenomegaly Musculoskeletal: dressing to lumbar spine, c/d/i JAYME with bloody drainage noted NVI 2+ dp, pt bilaterally calves non-tender Skin: warm, dry Neurologic: PERRL, EOMI, accommodation nl, no face palsy, no dysarthria Psychiatric: A+Ox3, euthymic affect Lymphatic: no cervical or axillary lymphadenopathy Results & Data Results & Data ([facility]) Vital Signs (Past 12 Hours) Vital Signs Temp Pulse Resp BP Pulse Ox 12/25/19 08:15 36.9 C 83 18 115/78 98 12/25/19 03:01 36.4 C L 87 16 104/69 98 Laboratory Results 12/25/19 12/25/19 12/25/19 Range/Units 12:17 08:20 05:27 WBC (4.8-10.8) K/uL RBC (4.2-5.4) M/uL Hgb (12.0-16.0) g/dL Hct (37-47) % MCV (80-100) fL MCH (25-34) pg MCHC (32-36) g/dL RDW Std Deviation (36.4-46.3) fL RDW Coeff of Stefany (11.5-14.5) % Plt Count (130-400) K/uL MPV (7.4-10.4) fL Immature Gran % (Auto) % Neut % (Auto) % Lymph % (Auto) % Hemphill % (Auto) % Eos % (Auto) % Baso % (Auto) % Neut # (Auto) (1.4-6.5) K/uL Lymph # (Auto) (1.2-3.4) K/uL Hemphill # (Auto) (0.11-0.59) K/uL Eos # (Auto) (0-0.5) K/uL Baso # (Auto) (0-0.2) K/uL Immature Gran # (Auto) (0.00-0.02) K/uL Sodium 137 (136-145) mmol/L Potassium 4.1 (3.5-5.1) mmol/L Chloride 108 H (98-107) mmol/L Carbon Dioxide 24 (21-32) mmol/L Anion Gap 5.0 (3-11) BUN 15 (7-18) mg/dl Creatinine 0.84 (0.6-1.2) mg/dl Est Cr Clr Drug Dosing 93.9 ml/min Est GFR ( Amer) 95.3 Est GFR (Non-Af Amer) 82.2 BUN/Creatinine Ratio 17.5 (10-20) Glucose 93 (70-99) mg/dl POC Glucose 124 H 93 (70-99) mg/dl Calcium 8.3 L (8.5-10.1) mg/dl 12/25/19 12/25/19 12/25/19 Range/Units 05:27 03:53 00:08 WBC 14.09 H (4.8-10.8) K/uL RBC 4.03 L (4.2-5.4) M/uL Hgb 11.6 L (12.0-16.0) g/dL Hct 37.3 (37-47) % MCV 92.6 (80-100) fL MCH 28.8 (25-34) pg MCHC 31.1 L (32-36) g/dL RDW Std Deviation 46.3 (36.4-46.3) fL RDW Coeff of Stefany 13.6 (11.5-14.5) % Plt Count 287 (130-400) K/uL MPV 10.4 (7.4-10.4) fL Immature Gran % (Auto) 0.1 % Neut % (Auto) 73.1 % Lymph % (Auto) 16.6 % Hemphill % (Auto) 9.7 % Eos % (Auto) 0.4 % Baso % (Auto) 0.1 % Neut # (Auto) 10.31 H (1.4-6.5) K/uL Lymph # (Auto) 2.34 (1.2-3.4) K/uL Hemphill # (Auto) 1.36 H (0.11-0.59) K/uL Eos # (Auto) 0.05 (0-0.5) K/uL Baso # (Auto) 0.01 (0-0.2) K/uL Immature Gran # (Auto) 0.02 (0.00-0.02) K/uL Sodium (136-145) mmol/L Potassium (3.5-5.1) mmol/L Chloride (98-107) mmol/L Carbon Dioxide (21-32) mmol/L Anion Gap (3-11) BUN (7-18) mg/dl Creatinine (0.6-1.2) mg/dl Est Cr Clr Drug Dosing ml/min Est GFR ( Amer) Est GFR (Non-Af Amer) BUN/Creatinine Ratio (-20) Glucose (70-99) mg/dl POC Glucose 102 H 158 H (70-99) mg/dl Calcium (8.5-10.1) mg/dl 12/24/19 12/24/19 12/24/19 Range/Units 20:40 17:09 14:53 WBC (4.8-10.8) K/uL RBC (4.2-5.4) M/uL Hgb (12.0-16.0) g/dL Hct (37-47) % MCV (80-100) fL MCH (25-34) pg MCHC (32-36) g/dL RDW Std Deviation (36.4-46.3) fL RDW Coeff of Stefany (11.5-14.5) % Plt Count (130-400) K/uL MPV (7.4-10.4) fL Immature Gran % (Auto) % Neut % (Auto) % Lymph % (Auto) % Hemphill % (Auto) % Eos % (Auto) % Baso % (Auto) % Neut # (Auto) (1.4-6.5) K/uL Lymph # (Auto) (1.2-3.4) K/uL Hemphill # (Auto) (0.11-0.59) K/uL Eos # (Auto) (0-0.5) K/uL Baso # (Auto) (0-0.2) K/uL Immature Gran # (Auto) (0.00-0.02) K/uL Sodium (136-145) mmol/L Potassium (3.5-5.1) mmol/L Chloride (98-107) mmol/L Carbon Dioxide (21-32) mmol/L Anion Gap (3-11) BUN (7-18) mg/dl Creatinine 1.03 (0.6-1.2) mg/dl Est Cr Clr Drug Dosing 76.6 ml/min Est GFR ( Amer) 74.4 Est GFR (Non-Af Amer) 64.2 BUN/Creatinine Ratio (10-20) Glucose (70-99) mg/dl POC Glucose 183 H 237 H (70-99) mg/dl Calcium (8.5-10.1) mg/dl PG Care Time/CCT Total # of Minutes Spent Total Time Spent with Patient: Total time spent is greater than 50% in coordination of care (as documented) at patient's floor/unit and/or counseling patient: Coding Level of Care Code 58367 Subseq Hosp Care Lvl 2 Diagnoses Neurogenic claudication due to lumbar spinal stenosis M48.062 DM type 2 (diabetes mellitus, type 2) E11.9 Asthma J45.909 Migraines G43.909 History of DVT (deep vein thrombosis) Z86.718
[2019-12-25] MEDS: DOCUSATE SODIUM/SENNA 50/8.6MG TAB PO SCH (20:49)
[2019-12-25] MEDS: OXcarbazepine 150 MG TABLET PO SCH (20:49)
[2019-12-25] MEDS: MAGNESIUM OXIDE 400 MG TAB PO SCH (20:50)
[2019-12-25] MEDS ORDERED: MONTELUKAST SODIUM 10 MG TABLET PO SCH (21:00)
[2019-12-25] MEDS ORDERED: ALBUTEROL HFA 8 GM INHALER INH PRN (21:22)
[2019-12-26] MEDS: POLYETHYLENE (MIRALAX) 17 GM PACK PO SCH ×2 (00:12→06:07)
[2019-12-26] MEDS: CHECK SCOPOLAMINE PATCH PLACEMENT SCH ×2 (00:12→09:19)
[2019-12-26] MEDS: oxyCODONE HCL IR 5 MG TAB (IMMEDIATE RELEASE) PO PRN ×3 (00:18→11:35)
[2019-12-26 06:35] LABS: Hematocrit (blood only) 38.6 % (37-47); Mean Corpuscular Hgb Conc 31.1 g/dL (32-36); Mean Corpuscular Volume 93.2 fL (80-100); Mean Platelet Volume 10.8 fL (7.4-10.4); Platelet Count 353 K/uL (130-400); RDW Standard Deviation 47.7 fL (36.4-46.3); Red Blood Count 4.14 M/uL (4.2-5.4); White Blood Count 12.52 K/uL (4.8-10.8)
[2019-12-26 07:02] LABS: BUN Creatinine Ratio 13.7 (10-20); Calcium 8.7 mg/dl (8.5-10.1); Est GFR (African American) 96.6; Est GFR (Non-African American) 83.4; Potassium 4.3 mmol/L (3.5-5.1)
[2019-12-26 07:25] VITALS: PULSE 99; TEMP 98.4; O2SAT 98
[2019-12-26] MEDS ORDERED: DEXAMETHASONE SOD PHOSPHATE 8 MG in SYRINGE 0 ML IV SCH (09:00)
[2019-12-26] MEDS ORDERED: NovoLIN-N (NPH) PER UNIT CHARGE SQ SCH (09:00)
[2019-12-26] MEDS: SPIRONOLACTONE 25 MG TAB PO SCH (09:17)
[2019-12-26] MEDS: ASCORBIC ACID 500 MG TAB PO SCH (09:17)
[2019-12-26] MEDS: POTASSIUM CHLORIDE 20 MEQ TABCR PO SCH (09:17)
[2019-12-26] MEDS: CALCIUM CARBONATE 1250MG TAB PO SCH (09:17)
[2019-12-26] MEDS: CHOLECALCIFEROL 1,000 UNITS 25 MCG TAB PO SCH (09:17)
[2019-12-26] MEDS: ADVANCED PROBIOTIC 1250 MG CAPSULE PO SCH (09:17)
[2019-12-26] MEDS: SITagliptin PHOSPHATE 100 MG TAB PO SCH (09:17)
[2019-12-26] MEDS: busPIRone 15 MG TAB PO SCH (09:17)
[2019-12-26] MEDS: FLUTICASONE/VILANTEROL 200/25MCG 14 PUFFS/INHALER INH SCH (09:18)
[2019-12-26] MEDS: FETZIMA PO SCH (09:18)
[2019-12-26] MEDS: INSULIN ASPART 100 UNITS/ML 3 ML PEN SC SCH (09:26)
--- NOTE | 2019-12-26 10:19 | Discharge Summary ---
Date of Service December 26, 2019 Admission HPI Per Admitting Provider This is a 49-year-old female who presents with worsening back and leg pain. After failing course of nonoperative care is here for surgical intervention. Principal Diagnosis Lumbar spinal stenosis with neurogenic claudication Discharge Data Allergies Allergy/AdvReac Type Severity Reaction Status Date / Time latex Allergy Unknown RASH,ITCHY Verified 12/24/19 08:52 prednisone Allergy Unknown UNKNOWN Verified 12/24/19 08:52 simvastatin Allergy Unknown UNKNOWN- Verified 12/24/19 08:52 fremanezumab-vfrm Allergy Rash Verified 12/24/19 08:52 [From Ajovy Autoinjector] galcanezumab-gnlm Allergy Rash Verified 12/24/19 08:52 [From Emgality Pen] Dust Allergy Unknown SOB,ITCHY Uncoded 12/24/19 08:52 Consultations 12/24/19 14:01 Consult Case Management - Discharge Planning Routine 12/24/19 14:15 Consult Hospitalist Routine Procedures Performed Operation Date: 12/24/19 10:05 Actual Procedures p L2-L3 Decompression Fusion, L3-S1 Hardware Removal, Spinal Cord Monitoring(Not Applicable) - Aime Norman DO Ordered Studies 12/24/19 10:05 FL fluoroscopy <1hr Routine FL lumbar spine 2-3V Routine Hospital Course (1) Neurogenic claudication due to lumbar spinal stenosis: Patient with lumbar decompression fusion tolerated well second orthopedic for postop labor postop day 1 she was up and ambulating progressed to postop #2 leg pain improved strength intact JAYME drain decreasing probably. Pain well controlled. Socially discharged home. Discharge orders instructions from the chart for further review. Total Time Total Time Spent Total Time Spent (In Minutes): 20 minutes Discharge Plan Discharge Items Patient Disposition: Home - Home Health Services Reason For Visit: Intervertebral Disc Degeneration, Lumbar Region Discharge Diagnosis: Lumbar spinal stenosis with neurogenic claudication Activity: As commented below Non-emergency contact: Primary Care Provider Call non-emergency contact if: you have any medication questions Follow-up/Referrals: Parvez Almeida [Primary Care Provider] - Diet: Regular Addtl Attending Provider Instructions: ACTIVITY RECOMMENDATIONS: SELF CARE INSTRUCTIONS AFTER THORACIC/LUMBAR FUSIONS 1. You may walk to your tolerance. It is good exercise for your legs and back. Expect some back and intermittent leg aches and pains. 2. You may perform "counter-top" level activities (make a sandwich, paula with a project, etc.). 3. No bending or lifting of more than 10 pounds or back twisting of any nature (roll like a log when turning in bed). 4. You may ride in a car for 20-30 minutes at a time. No driving until after your first visit with your doctor. 5. Frequent changes of position and restricting sitting to 30 minutes at a time will help limit the amount of back spasms and stiffness you may experience. 6. You may discontinue the use of ambulatory aids (cane, crutches, etc.) once your strength and confidence allow. 7. You may medical instrument cable fabricator the shower and let water strike your incision when you arrive home at least once daily. Do not take a tub bath, sit in a hot tub or go into a swimming pool until after your first recheck in the office. SPECIAL CARE INSTRUCTIONS: VERY IMPORTANT TO READ AND REVIEW A. Your surgical incision has been closed with a cosmetic suture under the skin that will dissolve in about 6 weeks. In 14 days, you can use a pair of clean scissors and cut the suture that is left outside of the skin at the ends of your incision. 1. The small skin tapes can be removed 7 days after surgery if they have not fallen off by that point. 2. You may keep the wound open to air as much as possible to promote healing after post-op day number 5 unless told otherwise by your doctor. 3. If you think the wound looks like it is becoming infected (redness or worsening drainage) and/or you are experiencing fever, chill or worsening back pain and muscle spasms, contact the office so that we may evaluate you as soon as possible. B. Complications are uncommon, but please contact us if you have any signs or symptoms of: 1. wound infection (fever higher than 102.5 degrees F, redness, separation of wound, drainage, or increasing pain from the incision) 2. blood clots in legs (pain, swelling, redness and warmth in legs) 3. urinary tract infection (fever higher than 102.5 degrees F, burning upon urination or increased frequency of urination) 4. nerve problems (inability to walk on your toes or heels, numbness, loss of bowel or bladder control) 5. any other symptoms that concern you C. Please call the office at if you have any concerns or questions about your operation or recovery. D. No smoking! Smoking drastically decreases the chance of a solid fusion. E. Do not take any anti-inflammatory medications (Indocin, Advil, Motrin, Aspirin, Naprosyn, etc.) as these may inhibit the chance of a solid fusion. Tylenol is okay to take for pain. MANAGING PAIN AFTER SPINAL SURGERY 1. Narcotic medication is intended for short-term use and will be provided for surgical pain. Surgical pain usually lasts for a period of 4-6 weeks. Narcotic medication includes Percocet, Vicodin, Darvocet, Tylenol #3 or Lortab. 2. Longer-term pain is more appropriately treated with non-narcotic medication such as Tylenol ES. 3. Muscle spasm is not appropriately treated with narcotics. Muscle relaxers such as Soma, Flexeril or Skelaxin can be used along with Tylenol ES. 4. Remember that we all live with some "aches and pains". This is not unusual or uncommon after an injury or as we get older. a. Back pain is expected and may include muscle spasms for 4 to 6 weeks after surgery. The pain should gradually improve. If the pain worsens for no apparent reason, please contact the office. b. Intermittent leg pain may also be experienced and should not be concerned about unless it worsens for no apparent reason. If so, please contact the office. 5. We will provide appropriate medication within the normal guidelines of their prescribed use. We will also be very cautious and aware of potential abuse and extended duration of patients' medication needs. a. Pain medications are for your comfort and to assist with sleep and rest so that the tissue can heal. They are not provided in order to return to normal activity and should not be used through the day. To do so or worsening pain at night can result from ongoing tissue damage and development of tolerance to the prescribed medicine. 6. Please allow 2-3 days to process refills. Prescriptions will not be mailed but must be picked up at the office. FOLLOW UP VISIT: Keep your scheduled follow-up appointment. Any questions, please call the office at . Pending Studies at Discharge: No Stand-Alone Forms: My [facility] PriceAdvice, Smoking Cessation Medications and [place] Order Prescriptions: New tramadol 50 mg tablet 50 mg PO Q6H PRN (Reason: pain, moderate) Qty: 30 RF: 0 oxycodone 5 mg tablet 5 mg PO Q6H PRN (Reason: pain, severe) Qty: 30 RF: 0 Continued calcium 600 mg Capsule 600 mg PO BID RF: 0 magnesium 500 mg Tablet 15 mg PO HS RF: 0 oxcarbazepine [Trileptal] 300 mg Tablet 300 mg PO HS RF: 0 spironolactone [Aldactone] 25 mg Tablet 25 mg PO BID RF: 0 ascorbic acid (vitamin C) [Vitamin C] 500 mg Tablet 500 mg PO QAM RF: 0 montelukast [Singulair] 10 mg Tablet 10 mg PO QAM RF: 0 albuterol sulfate 90 mcg/actuation Hfa Aerosol Inhaler 1 inh INHALATION QID PRN (Reason: sob) RF: 0 buspirone [BuSpar] 15 mg Tablet 15 mg PO BID RF: 0 cholecalciferol (vitamin D3) [Vitamin D3] 25 mcg (1,000 unit) Capsule 25 mcg PO QAM RF: 0 Januvia 100 mg Tablet 100 mg PO QAM RF: 0 budesonide-formoterol [Symbicort] 160-4.5 mcg/actuation Hfa Aerosol Inhaler 2 puff INHALATION BID RF: 0 Fetzima 120 mg Capsule,Extended Release 24 Hr 120 mg PO QAM RF: 0 potassium chloride 20 mEq Tablet Extended Release 20 meq PO BID RF: 0 Jardiance 10 mg Tablet 10 mg PO QAM RF: 0 Botox 1 dose IM DIRECTED RF: 0 Probiotic 1 cap PO TID RF: 0 Discharge Orders: Discharge Order (Routine); Ordered 12/26/19 Ordered By: Aime Nunez/Other Patient Handouts: Managing Type 2 Diabetes, Managing Diabetes: The A1C Test Admission Data Admit Date/Time: 12/24/19 13:03 Attending Provider: Aime Norman Admit Provider: Aime Norman Primary Care Provider: Parvez Almeida Other Providers: Kendell Hung ; Bessie Valladares ; Holden Powell ; Jonatan Santos ; Elvira Sellers ; Alvaro Hodges ; Eliseo Smith ; Catarino John ; Radha Cuellar ; Deborah Elizabeth ; Mae Carrington ; Thad Vasquez ; Nathalia Self ; Lucita Glass ; Donald Ferrer ; Elio Le ; Derik Ragland ; Shira Hernandez ; Zakia Falcon ; Louis Odonnell ; Holden Cabrera ; Jones Whitfield ; Silvia Burgos ; Karlee Burgos ; Marcos Gee ; Lakisha Cedeño ; Alton Heaton ; García Montalvo ; Robert Farooq
[2019-12-26 11:16] VITALS: BP 126/83
== END 2019-12-26 12:16 | disposition home health service (06) | DRG 455 ==
LOC: ASU 08:28 → MERGE 09:05 → 3E 13:03

== ENCOUNTER 2021-06-10 05:59 | Inpatient (IN) ==
--- NOTE | 2021-05-21 16:01 | PAT Medication Instructions ---
Medication Instructions Date of Service May 21, 2021 Home Medications Botox 1 dose IM DIRECTED Probiotic 1 cap PO TID albuterol sulfate 90 mcg/actuation aerosol inhaler 1 inh INHALATION QID PRN ascorbic acid (vitamin C) 500 mg tablet (Vitamin C) 500 mg PO QAM buspirone 15 mg tablet 15 mg PO TID calcium 600 mg capsule 600 mg PO BID cholecalciferol (vitamin D3) 25 mcg (1,000 unit) capsule (Vitamin D3) 25 mcg PO QAM empagliflozin 10 mg tablet (Jardiance) 10 mg PO QAM levomilnacipran 120 mg capsule,24 hr,extended release (Fetzima) 149 mg PO QAM magnesium 500 mg tablet 500 mg PO HS montelukast 10 mg tablet (Singulair) 10 mg PO QAM oxcarbazepine 300 mg tablet (Trileptal) 300 mg PO BID potassium chloride 20 mEq tablet,extended release 20 meq PO BID spironolactone 25 mg tablet (Aldactone) 25 mg PO BID acetaminophen 500 mg tablet 500 mg PO Q6H PRN fluticasone propionate 45 mcg-salmeterol 21 mcg/actuation HFA inhaler (Advair HFA) 2 puff INHALATION BID multivitamin 1 tab PO QAM oxcarbazepine 150 mg tablet (Trileptal) 150 mg PO BID Continue as directed Botox 1 dose IM DIRECTED DO NOT take the morning of surgery Probiotic 1 cap PO TID ascorbic acid (vitamin C) 500 mg tablet (Vitamin C) 500 mg PO QAM calcium 600 mg capsule 600 mg PO BID cholecalciferol (vitamin D3) 25 mcg (1,000 unit) capsule (Vitamin D3) 25 mcg PO QAM empagliflozin 10 mg tablet (Jardiance) 10 mg PO QAM montelukast 10 mg tablet (Singulair) 10 mg PO QAM potassium chloride 20 mEq tablet,extended release 20 meq PO BID spironolactone 25 mg tablet (Aldactone) 25 mg PO BID multivitamin 1 tab PO QAM Take morning of surgery With a small sip of water, OTHERWISE NOTHING TO EAT OR DRINK AFTER MIDNIGHT: albuterol sulfate 90 mcg/actuation aerosol inhaler 1 inh INHALATION QID PRN (use if needed; please bring with you to hospital day of surgery if possible) buspirone 15 mg tablet 15 mg PO TID levomilnacipran 120 mg capsule,24 hr,extended release (Fetzima) 149 mg PO QAM oxcarbazepine 300 mg tablet (Trileptal) 300 mg PO BID acetaminophen 500 mg tablet 500 mg PO Q6H PRN (okay to take up to 4 hours prior to surgery if needed) fluticasone propionate 45 mcg-salmeterol 21 mcg/actuation HFA inhaler (Advair HFA) 2 puff INHALATION BID oxcarbazepine 150 mg tablet (Trileptal) 150 mg PO BID Take evening before surgery Probiotic 1 cap PO TID albuterol sulfate 90 mcg/actuation aerosol inhaler 1 inh INHALATION QID PRN (if needed) buspirone 15 mg tablet 15 mg PO TID calcium 600 mg capsule 600 mg PO BID magnesium 500 mg tablet 500 mg PO HS oxcarbazepine 300 mg tablet (Trileptal) 300 mg PO BID potassium chloride 20 mEq tablet,extended release 20 meq PO BID spironolactone 25 mg tablet (Aldactone) 25 mg PO BID acetaminophen 500 mg tablet 500 mg PO Q6H PRN (if needed) fluticasone propionate 45 mcg-salmeterol 21 mcg/actuation HFA inhaler (Advair HFA) 2 puff INHALATION BID oxcarbazepine 150 mg tablet (Trileptal) 150 mg PO BID Other Notes If you have any questions please call us at [phone] or [phone] or [phone] or [phone]
--- NOTE | 2021-05-27 10:44 | Anesthesiology Consultation ---
Date of Service May 27, 2021 Assessment & Plan (1) Encounter for pre-operative examination: - COVID screening: Per assessment on 05/27: Travel screen negative, no known COVID-19 positive contacts or current COVID-19 related symptoms. Surgeon arrangi ng preop COVID testing. Patient vaccinated. Awaiting results. - Check BSG AM DOS - S/P L2-L3 decompression/fusion, L3-S1 hardware removal (12/24/19): Grade 1 view, MAC#3, DVL x1 atraumatic at [facility] - Patient states she will be seeing PCP (Adam Gallardo; 06/02/21) prior to surgery. Awaiting office visit note. Chart Review Chart Review: Patient seen in Pre Admission Testing Teaching & Discussion Pre-Anesthesia Teaching/Discussion Notes: Instructed NPO after midnight before surgery,except medications with 15 cc of water. Medication instructions provided according to the PAT guidelines. History Surgery Operation Date: 06/10/21 12:25 Proposed Procedures p T11-L2 Decompression and Fusion, Spinal Cord Monitoring - Aime Norman DO Height/Weight Height: 5 ft 4 in Weight: 99.7 kg Allergies Allergy/AdvReac Type Severity Reaction Status Date / Time fremanezumab-vfrm Allergy Unknown Rash Verified 05/21/21 15:04 [From Ajovy Autoinjector] galcanezumab-gnlm Allergy Unknown Rash Verified 05/21/21 15:04 [From Emgality Pen] latex Allergy Unknown Rash, itchy Verified 05/25/21 15:58 simvastatin Allergy Unknown Unknown Verified 05/25/21 15:58 milk AdvReac Unknown GI issues Verified 05/25/21 15:58 Dust Allergy Unknown SOB, itchy Uncoded 05/25/21 15:58 Medications Home Medications Medication Instructions Recorded Confirmed Last Taken Botox 1 dose IM DIRECTED 12/03/19 05/21/21 12/06/19 Probiotic 1 cap PO TID 12/03/19 05/21/21 12/23/19 20:00 albuterol sulfate 90 mcg/actuation 1 inh INHALATION QID PRN 12/03/19 05/21/21 Unknown aerosol inhaler ascorbic acid (vitamin C) 500 mg 500 mg PO QAM 12/03/19 05/21/21 12/23/19 05:00 tablet (Vitamin C) buspirone 15 mg tablet 15 mg PO TID 12/03/19 05/21/21 12/23/19 20:00 calcium 600 mg capsule 600 mg PO BID 12/03/19 05/21/21 12/23/19 20:00 cholecalciferol (vitamin D3) 25 25 mcg PO QAM 12/03/19 05/21/21 12/23/19 05:00 mcg (1,000 unit) capsule (Vitamin D3) empagliflozin 10 mg tablet 10 mg PO QAM 12/03/19 05/21/21 12/23/19 05:00 (Jardiance) levomilnacipran 120 mg capsule,24 149 mg PO QAM 12/03/19 05/21/21 12/24/19 05:00 hr,extended release (Fetzima) magnesium 500 mg tablet 500 mg PO HS 12/03/19 05/21/21 12/23/19 20:00 montelukast 10 mg tablet 10 mg PO QAM 12/03/19 05/21/21 12/23/19 05:00 (Singulair) oxcarbazepine 300 mg tablet 300 mg PO BID 12/03/19 05/21/21 12/23/19 20:00 (Trileptal) potassium chloride 20 mEq 20 meq PO BID 12/03/19 05/21/21 12/23/19 05:00 tablet,extended release spironolactone 25 mg tablet 25 mg PO BID 12/03/19 05/21/21 12/23/19 13:00 (Aldactone) acetaminophen 500 mg tablet 500 mg PO Q6H PRN 05/21/21 05/21/21 Unknown fluticasone propionate 45 2 puff INHALATION BID 05/21/21 05/21/21 Unknown mcg-salmeterol 21 mcg/actuation HFA inhaler (Advair HFA) multivitamin 1 tab PO QAM 05/21/21 05/21/21 Unknown oxcarbazepine 150 mg tablet 150 mg PO BID 05/21/21 05/21/21 Unknown (Trileptal) Past Medical History Medical History Anxiety Stable and controlled Asthma Stable and controlled Bipolar disorder Chronic back pain Depression DM type 2 (diabetes mellitus, type 2) NIDDM Fatty liver Follows with liver specialist- LFTs stable Fibromyalgia Stable Hiatal hernia History of DVT (deep vein thrombosis) CHARO (2016)- felt r/t picc line - was on AC x months - no issues x years since being off AC History of kidney stones No current issues Hyperlipemia Kidney stones Migraines Sleep apnea Non compliant with CPAP Temporomandibular joint disorder No locking Exercise / Class Metabolic Activity II 4-5 Yardwork/Stairs/Walk up hill (one FS (no CP, no SOB)) Past Family History Family History Father Diabetes Mother Diabetes Grandmother (Paternal) Diabetes Grandfather (Paternal) Colon cancer Past Surgical History Surgical History History of abdominoplasty History of cholecystectomy History of colonoscopy History of cystoscopy with stone extraction History of esophagogastroduodenoscopy (EGD) History of foot surgery Rt History of hysterectomy with unilateral oophorectomy History of lumbar surgery x2 L2-L3 decompression/fusion, L3-S1 hardware removal (12/24/19): Grade 1 view, MAC#3, DVL x1 atraumatic at [facility] History of lumpectomy of left breast History of myringotomy BMT History of tonsillectomy History of tooth extraction History of umbilical hernia repair Hx of fusion of cervical spine ROM WNL Post-operative nausea and vomiting S/P PICC central line placement removed (had for infection following back surgery) Past Anesthesia History No Hx of Anesthesia Complications (except post-op nausea) and No Family Hx of Anesthesia Complications History of PONV History of PONV (+ nausea) and Hx of Motion Sickness Social History Smoking Status: Never smoker Do You Dip or Chew Tobacco: No Hx Alcohol Use: No Hx Substance Use: No substance use type: does not use Review of Systems Patient denies chest pain, shortness of breath, dyspnea on exertion, fever, chills, cough, wheezing, palpitations. Physical Exam Vital Signs VITALS BP 131/82 P 90 TEMP 98.5 SP02 96%RA RESP 18 PHYSICAL Full cervical extension range of motion. Full TMJ range of motion. TMD 4 finger breaths Mallampati Score 3 Dentition: full dentures upper, edentulous Lungs: clear throughout to auscultation Cardiac: regular rate and rhythm, no murmurs noted Spine: normal Carotid arteries: negative bruit Extremities: no edema Lab Results Anesthesia Preop Results Results Anesthesia Widget: WBC 11.27 K/uL (4.8-10.8) H 05/27/21 Hgb 12.5 g/dL (12.0-16.0) 05/27/21 Hct 40.1 % (37-47) 05/27/21 Plt 506 K/uL (130-400) H 05/27/21 PT 10.0 Seconds (9.0-12.0) 05/27/21 PTT 25.4 Seconds (21.0-31.0) 05/27/21 INR 0.9 (0.9-1.1) 05/27/21 HA1c 7.2 % (4.5-5.6) H 05/27/21 Urine Color Yellow 05/27/21 Urine Appearance Clear (Clear) 05/27/21 Urine pH 7.0 (4.5-7.5) 05/27/21 Urine Specific Saline 1.024 (1.000-1.030) 05/27/21 Urine Protein Negative (Negative) 05/27/21 Urine Glucose (UA) 3+ (Negative) H 05/27/21 Urine Ketones Negative (Negative) 05/27/21 Urine Blood Negative (Negative) 05/27/21 Urine Nitrite Negative (Negative) 05/27/21 Urine Bilirubin Negative (Negative) 05/27/21 Urine Urobilinogen Negative (Negative) 05/27/21 Urine Leukocyte Esterase Negative (Negative) 05/27/21 Blood Type A Positive 05/27/21 Antibody Screen NEGATIVE 05/27/21 Testing Laboratory Results 05/12/21 SODIUM 135 POTASSIUM 3.7 CHLORIDE 103 CO2 28.0 BUN 19.8 CREATININE 1.22 GLUCOSE 106 Electrocardiogram Date: 05/27/21 NSR at 84bpm. NS STA. unconfirmed report. Chest X-Ray Date: 05/27/21 FINDINGS: Frontal and lateral radiographs of the chest demonstrate the cardiomediastinal silhouette to be within normal limits. The lungs are clear of alveolar opacities. There is no evidence for effusion bilaterally. There is no evidence for vascular congestion. There is no acute osseous pathology. IMPRESSION: No acute cardiopulmonary disease.
[2021-06-10] MEDS ORDERED: ceFAZolin 2000MG 2,000 MG/15 ML SYR IV SCH (06:00)
[2021-06-10] MEDS ORDERED: ACETAMINOPHEN 500 MG TAB PO SCH (06:00)
[2021-06-10] MEDS ORDERED: CeleBREX 200 MG CAP PO SCH (06:00)
[2021-06-10] MEDS ORDERED: LR 15ML/HR IV SCH (06:00)
[2021-06-10] MEDS ORDERED: GABAPENTIN 900 MG DOSE PO SCH (06:00)
[2021-06-10] MEDS ORDERED: PROPOFOL IV EMULSION 10 MG/ML 20 ML VIAL IV ONE (06:49)
[2021-06-10] MEDS ORDERED: LIDOCAINE 2% 2 ML VIAL/AMP(20MG/ML) INFIL ONE (06:49)
[2021-06-10] MEDS ORDERED: ROCURONIUM BROMIDE 10 MG/ML 5 ML VIAL IV ONE (06:49)
[2021-06-10] MEDS ORDERED: fentaNYL citrate 100 MCG/2 ML VIAL ONE (06:49)
[2021-06-10] MEDS ORDERED: MIDAZOLAM HCL 1 MG/ML 2ML VIAL ONE (06:50)
[2021-06-10] MEDS ORDERED: ceFAZolin 330 MG/ML 1 GM VIAL ONE (07:08)
[2021-06-10] MEDS ORDERED: BUPIVACAINE/EPINEPHRINE 0.25% 1:200,000 30 ML VIAL ONE (07:08)
[2021-06-10] MEDS ORDERED: KETAMINE 50 MG/5 ML SYRINGE ONE (07:26)
--- NOTE | 2021-06-10 07:30 | History & Physical Bridge Note ---
Date of Service June 10, 2021 History & Physical Bridge Note I have examined the patient, reviewed the History & Physical and in the interval since the performance of the History & Physical I have noted the following changes of clinical significance: no changes noted
--- NOTE | 2021-06-10 07:31 | History & Physical Report ---
Date of Service June 10, 2021 Assessment & Plan (1) Neurogenic claudication due to lumbar spinal stenosis: Plan: T12-L2 decompression fusion History of Present Illness Chief Complaint: Back and leg pain Primary Care Provider: NO PCP This is a 50-year-old female who presents with marked clinical status with study back and bilateral leg pain. Failing course of nonoperative care she is here for surgical invention. Allergies Allergy/AdvReac Type Severity Reaction Status Date / Time fremanezumab-vfrm Allergy Unknown Rash Verified 06/10/21 06:36 [From Ajovy Autoinjector] galcanezumab-gnlm Allergy Unknown Rash Verified 06/10/21 06:36 [From Emgality Pen] latex Allergy Unknown Rash, itchy Verified 06/10/21 06:36 simvastatin Allergy Unknown Unknown Verified 06/10/21 06:36 milk AdvReac Unknown GI issues Verified 06/10/21 06:36 Dust Allergy Unknown SOB, itchy Uncoded 06/10/21 06:36 Home Medications Medication Instructions Recorded Confirmed Type Botox 1 dose IM DIRECTED 12/03/19 06/10/21 History Probiotic 1 cap PO TID 12/03/19 06/10/21 History albuterol sulfate 90 mcg/actuation 1 inh INHALATION QID PRN 12/03/19 06/10/21 History aerosol inhaler ascorbic acid (vitamin C) 500 mg 500 mg PO QAM 12/03/19 06/10/21 History tablet (Vitamin C) buspirone 15 mg tablet 15 mg PO TID 12/03/19 06/10/21 History calcium 600 mg capsule 600 mg PO BID 12/03/19 06/10/21 History cholecalciferol (vitamin D3) 25 25 mcg PO QAM 12/03/19 06/10/21 History mcg (1,000 unit) capsule (Vitamin D3) empagliflozin 10 mg tablet 10 mg PO QAM 12/03/19 06/10/21 History (Jardiance) levomilnacipran 120 mg capsule,24 149 mg PO QAM 12/03/19 06/10/21 History hr,extended release (Fetzima) magnesium 500 mg tablet 500 mg PO HS 12/03/19 06/10/21 History montelukast 10 mg tablet 10 mg PO QAM 12/03/19 06/10/21 History (Singulair) oxcarbazepine 300 mg tablet 300 mg PO BID 12/03/19 06/10/21 History (Trileptal) potassium chloride 20 mEq 20 meq PO BID 12/03/19 06/10/21 History tablet,extended release spironolactone 25 mg tablet 25 mg PO BID 12/03/19 06/10/21 History (Aldactone) acetaminophen 500 mg tablet 500 mg PO Q6H PRN 05/21/21 06/10/21 History fluticasone propionate 45 2 puff INHALATION BID 05/21/21 06/10/21 History mcg-salmeterol 21 mcg/actuation HFA inhaler (Advair HFA) multivitamin 1 tab PO QAM 05/21/21 06/10/21 History oxcarbazepine 150 mg tablet 150 mg PO BID 05/21/21 06/10/21 History (Trileptal) Past Med/Surg History Medical History Anxiety Stable and controlled Asthma Stable and controlled Bipolar disorder Chronic back pain Depression DM type 2 (diabetes mellitus, type 2) NIDDM Fatty liver Follows with liver specialist- LFTs stable Fibromyalgia Stable Hiatal hernia History of DVT (deep vein thrombosis) CHARO (2016)- felt r/t picc line - was on AC x months - no issues x years since being off AC History of kidney stones No current issues Hyperlipemia Kidney stones Migraines Sleep apnea Non compliant with CPAP Temporomandibular joint disorder No locking Surgical History History of abdominoplasty History of cholecystectomy History of colonoscopy History of cystoscopy with stone extraction History of esophagogastroduodenoscopy (EGD) History of foot surgery Rt History of hysterectomy with unilateral oophorectomy History of lumbar surgery x2 L2-L3 decompression/fusion, L3-S1 hardware removal (12/24/19): Grade 1 view, MAC#3, DVL x1 atraumatic at [facility] History of lumpectomy of left breast History of myringotomy BMT History of tonsillectomy History of tooth extraction History of umbilical hernia repair Hx of fusion of cervical spine ROM WNL Post-operative nausea and vomiting S/P PICC central line placement removed (had for infection following back surgery) Family History Father Diabetes Mother Diabetes Grandmother (Paternal) Diabetes Grandfather (Paternal) Colon cancer Social History Smoking Status: Never smoker Second Hand Exposure: Yes; Do You Dip or Chew Tobacco: No; Hx Alcohol Use: No Hx Substance Use: No Preferred Language: Cambodian Communication Ability: Effective [employer] Required: No Beliefs That Will Affect Care: None marital status: Current Living Situation: Spouse Current Living Situation Comment: and children current occupational status: disabled Other Information That Helps Us Care for You: No Feels Safe at Home: Yes Safety Concerns: Feels Safe At This Time Assistive Devices: Walker Assistive Devices Comment: WILL WEAR GLASSES DOS Physical Exam Physical Exam: Patient is alert and oriented Heart regular rhythm Lungs clear Results & Data ([facility]) Vital Signs (Past 12 Hours) Vital Signs Temp Pulse Resp BP Pulse Ox 06/10/21 06:29 37.1 C 89 20 104/73 100
[2021-06-10] MEDS ORDERED: SCOPOLAMINE 1 MG TDSY TD ONE (07:35)
[2021-06-10] MEDS ORDERED: ONDANSETRON INJ 2 MG/ML 2 ML VIAL IV PRN (07:41)
[2021-06-10] MEDS ORDERED: ATROPINE SULFATE 0.1 MG/ML 10ML SYR IV PRN (07:41)
[2021-06-10] MEDS ORDERED: HYDROmorphone INJ 1 MG/ML SYRINGE IV PRN (07:41)
[2021-06-10] MEDS ORDERED: ePHEDrine sulfate 50 MG/ML AMP IV PRN (07:41)
--- NOTE | 2021-06-10 07:42 | History & Physical Bridge Note ---
Date of Service June 10, 2021 History & Physical Bridge Note I have examined the patient, reviewed the History & Physical and in the interval since the performance of the History & Physical I have noted the following changes of clinical significance: no changes noted Lumbar decompression fusion T11-L2
[2021-06-10] MEDS ORDERED: SCOPOLAMINE 1 MG TDSY TD SCH (07:45)
[2021-06-10] MEDS ORDERED: DEXAMETHASONE SOD INJ 4 MG/ML VIAL ONE (08:35)
[2021-06-10] MEDS ORDERED: ONDANSETRON INJ 2 MG/ML 2 ML VIAL ONE (08:35)
[2021-06-10] MEDS ORDERED: NEOSTIGMINE METHYLSULFATE 1 MG/ML 10ML VIAL ONE (09:02)
[2021-06-10] MEDS ORDERED: GLYCOPYRROLATE 0.2 MG/ML VIAL ONE (09:03)
[2021-06-10] MEDS ORDERED: PHENYLEPHRINE 100MCG/ML 5ML SYR ONE (09:10)
[2021-06-10] MEDS ORDERED: FLOSEAL HEMOSTATIC MATRIX 10ML TOP ONE (09:35)
--- NOTE | 2021-06-10 09:44 | Operative Report ---
Post Operative Report Pre & Post Diagnosis Operation Date: 06/10/21 07:45 Pre-Op Diagnosis: Lumbar spinal stenosis with radiculopathy Post-Op Diagnosis: Postop diagnosis Same I identified the patient and participated in the time-out.: Yes Procedure Operation Date: 06/10/21 07:45 Actual Procedures #1 removal of posterior instrumentation L2-L3. #2 exploration of fusion L2-L3. #3 lumbar decompression bilateral medial facetectomies and foraminotomies T12-L1 L1-L2. #4 posterior spinal fusion T12-L2. #5 placement posterior instrumentation T12-L3. #6 interbody fusion L1-L2. #7 placement of peek cage 9 x 22 mm at L1-L2. #8 placement locally harvested morselized autograft in the posterior gutters. #9 placement infuse collagen sponge master graft in the posterior lateral gutters and I factor interbody space. Surgeon Aime Norman, DO Nanoscience Technician Zo Maurice Estimated Blood Loss 200 Findings See Below The patient is 5 foot 4 weighing over 9 kg with a BMI in excess of 37. Patient's body habitus did create significant technical difficulty requiring her deepest retractors longus instruments in order to perform her procedure. This at least 50% increased operative time. Specimens None Indications This is a 41-year-old female known to me the presents with bulge diagnosis after failing course of nonoperative care she is here for surgical invention. Description of Procedure Patient was met with identified informed consent obtained. Patient was then taken to the operative suite underwent intubation placed in a prone position the Brian table top Lonnie frame. All bony prominences well-padded eyes inspected to ensure no external pressure placed upon the. This point the thoracolumbar spine was prepped and draped in a sterile fashion. Sharp dissection with the assistance of Bovie cautery was performed down to and exposing the lamina and transverse processes of T11 T12-L1 and instrumentation at L2-L3. Then proceeded to move the hardware bilaterally L2-L3 explore the fusion mass noting it to be mature and intact. Then performed a complete laminectomy of L1 partial laminectomy of T12 including bilateral medial facetectomies and foraminotomies addressing all spinal stenosis. Pedicle screws were then placed in T11-T12 L1-L2-L3 bilaterally with assistance of fluoroscopy the proper sized lashell placed. By way of a transforaminal portion of right complete discectomy of L1-2 was performed infiltrated to subcortically bone and a 9 x 22 mm peek cage with I factor tapped in position. The rods were then locked in final position bilaterally. Transverse processes of T11 T12-L1 and L2 burred to subcortical bleeding bone. Infuse collagen sponge master after local autograft was placed in the posterior gutters. 15 round JAYME drain inserted. The incision was then closed with 1 Vicryl the fascia 2-0 Vicryl subcutaneously and 4 Monocryl for final skin closure. Steri-Strips dressings placed. Patient will continue PACU stable condition. Please note spinal cord monitoring was utilized at the procedure no changes noted. Lastly Zo Maurice was present at the entire surgery and while the patient positioning complex portions of the surgery and final skin closure. I attest to the content of the Intraoperative Record and any orders documented therein. Any exceptions are noted below.
--- NOTE | 2021-06-10 09:48 | Fluoroscopy Report ---
FL lumbar spine 2-3V CLINICAL HISTORY: T11-L2 decompression and fusion COMPARISON STUDY: None. FLUOROSCOPY TIME: 26 seconds. FINDINGS: 3 fluoroscopic spot images of the lumbar spine demonstrate posterior decompression and fusi on from T12 through L3 with pedicle screws and rods. The hardware appears intact. IMPRESSION: Fluoroscopic assistance provided for T12-L3 posterior decompression and fusion. ACT 112: Negative or not required by law. Electronically signed by: James Varela M.D. 06/10/2021 9:47 AM
[2021-06-10] MEDS: fentaNYL citrate 100 MCG/2 ML VIAL IV PRN ×4 (10:14→10:29)
[2021-06-10] MEDS ORDERED: diphenhydrAMINE Capsule 25 MG CAP PO PRN (11:11)
[2021-06-10] MEDS ORDERED: ACETAMINOPHEN 1,000 MG/100 ML VIAL IV PRN (11:11)
[2021-06-10] MEDS ORDERED: traMADol HCL 50 MG TABLET PO PRN (11:11)
[2021-06-10] MEDS ORDERED: bisacodyL 10 MG SUPP PR PRN (11:11)
[2021-06-10] MEDS ORDERED: HYDROmorphone INJ 0.5 MG/0.5 ML SYR IV PRN (11:11)
[2021-06-10] MEDS ORDERED: LORazepam 0.5 MG TAB PO PRN (11:11)
[2021-06-10] MEDS ORDERED: hydrOXYzine HCl 25 MG TAB PO PRN (11:11)
[2021-06-10] MEDS ORDERED: FAMOTIDINE 20 MG TAB PO PRN (11:11)
[2021-06-10] MEDS ORDERED: NALOXONE HCL 0.4 MG/1 ML VIAL/CARP IV PRN (11:11)
[2021-06-10] MEDS ORDERED: METOCLOPRAMIDE HCL INJ 5 MG/ML 2 ML VIAL IV PRN (11:11)
[2021-06-10] MEDS ORDERED: ALUMINUM/MAGNESIUM SUSP 30 ML UDC PO PRN (11:11)
[2021-06-10] MEDS ORDERED: LORazepam 2 MG/1 ML VIAL IV PRN (11:11)
[2021-06-10] MEDS ORDERED: ALBUTEROL HFA 8 GM INHALER INH PRN (11:11)
[2021-06-10] MEDS ORDERED: PHARMACY GLYCEMIC MGMT CONSULT PRN (11:11)
[2021-06-10] MEDS ORDERED: MAGNESIUM HYDROXIDE SUSP 30 ML UDC PO PRN (11:11)
[2021-06-10] MEDS ORDERED: PROMETHAZINE HCL 12.5 MG in SODIUM CHLORIDE 0.9% 50 ML IV PRN (11:11)
[2021-06-10] MEDS ORDERED: DO NOT ADMINISTER FLU VACCINE PRN (11:11)
[2021-06-10] MEDS ORDERED: ACETAMINOPHEN 500 MG TAB PO PRN (11:11)
[2021-06-10] MEDS ORDERED: DO NOT ADMINISTER PNEUMOCOCCAL VACCINE PRN (11:11)
[2021-06-10] MEDS ORDERED: SOD PHOSPHATE/SOD BIPHOSPHATE ENEMA 132 ML BTL PR PRN (11:11)
--- NOTE | 2021-06-10 11:19 | Anesthesiology Progress Note ---
Date of Service June 10, 2021 Anesthesia Post Procedure Vital Signs Vital Signs: Temp Pulse Pulse Resp BP BP Pulse Ox 06/10/21 10:40 97.7 F 84 12 149/71 H 99 06/10/21 10:30 86 15 137/70 100 06/10/21 10:20 84 13 136/70 100 06/10/21 10:10 92 H 18 138/74 100 06/10/21 10:03 97.0 F L 88 13 130/52 L 100 06/10/21 06:29 98.8 F 89 20 104/73 100 Pain Intensity Bilateral Lower Back: Pain Intensity: 7 Back: Pain Intensity: 7 Transfer of Care Handoff Completed per policy Notes Mental Status: alert / awake / arousable and participated in evaluation Patient Amnestic to Procedure: Yes Nausea / Vomiting: adequately controlled Pain: adequately controlled Airway Patency, RR, SpO2: stable & adequate BP & HR: stable & adequate Hydration State: stable & adequate Anesthetic Complications: no major complications apparent and Pt Satisfied with anesthetic care
[2021-06-10] MEDS: CHECK SCOPOLAMINE PATCH PLACEMENT SCH ×2 (11:26→16:48)
[2021-06-10] MEDS: SODIUM CHLORIDE 0.9% 1000ML 1,000 ML IV SCH ×2 (11:27→18:05)
[2021-06-10] MEDS ORDERED: HYDROmorphone INJ 1 MG/ML SYRINGE ONE (11:32)
[2021-06-10] MEDS: HYDROmorphone INJ 1 MG/ML SYRINGE IV PRN ×2 (11:34→21:03)
[2021-06-10] MEDS: ONDANSETRON INJ 2 MG/ML 2 ML VIAL IV PRN ×2 (11:56→21:03)
[2021-06-10] MEDS ORDERED: GLUCOSE 10 TABS/TUBE PO PRN (12:15)
[2021-06-10] MEDS ORDERED: CARBOHYDRATES FOR HYPOGLYCEMIA PO PRN (12:15)
[2021-06-10] MEDS ORDERED: INSULIN GLARGINE SOLOSTAR 100 UNITS/ML 3 ML PEN SC ONE (12:15)
[2021-06-10] MEDS ORDERED: DEXTROSE 50% 50 ML SYRINGE IV PRN (12:15)
[2021-06-10] MEDS ORDERED: GLUCAGON FOR INJ 1 MG VIAL IM PRN (12:15)
[2021-06-10] MEDS ORDERED: GLUCOSE 40% GEL 15 GM TUBE PO PRN (12:15)
--- NOTE | 2021-06-10 12:50 | Hospitalist Consultation ---
Date of Consultation June 10, 2021 Assessment & Plan (1) Neurogenic claudication due to lumbar spinal stenosis: S/P #1 removal of posterior instrumentation L2-L3. #2 exploration of fusion L2-L3. #3 lumbar decompression bilateral medial facetectomies and foraminotomies T12-L1 L1-L2. #4 posterior spinal fusion T12-L2. #5 placement posterior instrumentation T12-L3. #6 interbody fusion L1-L2. #7 placement of peek cage 9 x 22 mm at L1-L2. #8 placement locally harvested morselized autogr aft in the posterior gutters. #9 placement infuse collagen sponge master graft in the posterior lateral gutters and I factor interbody space. - Pain control per primary orthopaedic service- rescue Narcan is available - Antianxiety prn medications discontinued with other poly pharmacy - IVF per primary service - ABX per primary service - VTE - per primary service - Diet per primary service - OT/PT per primary service - Blood transfusions per primary service - Rdz/drains- per primary service (2) Asthma: Well controlled per patient with very minimal use of her SABAL - Continue REJI- Continue ICS/LABA - Continue montelukast - Continue Fetzima for allergic component as well (3) Sleep apnea: CPAP 9CM H20- ordered for napping and HS - use while receiving further narcotics and sedating medications that are centrally acting (4) Hyperlipemia: Rosuvastatin 10mg home dose ordered (5) HTN (hypertension): Continue with home spironaolactone as long as euvolemic and hemodyanmically stable through PM - scheduled for evening 06/10/21 - EF from ECHO 04/26 with EF 65 % normal LV and RV (6) Depression: -Continue Trileptal- patient dose verified by her as 450mg PO BID - Continue Buspirone 15 mg PO TID - Further avoid other sedating benzos or QT prolonging medications unless needed - As per recs- discontinued prns (7) DM type 2 (diabetes mellitus, type 2): Hold Jardiance - Pharmacy consult placed - agree follow (8) GERD (gastroesophageal reflux disease): Previously on PPI- will schedule her Famotidine q12 - she stopped at recs from PCP as she was on for prolonged time - Follow- while she is on Decadron and any further NSAIDS- (9) Migraines: Well controlled- continue trileptal as above (10) History of DVT (deep vein thrombosis): from PICC line placement- completed her anticoa no further history of clots endorsed Supervising Physician Co-Signing Physician Notes I personally saw and examined the patient. I verified all blanco points and agree with SHANNAN Al with the following exceptions and/or additions: 50 yo female POD #0 removal of posterior instrumentation, exploration of fusion, lumbar decompression and posterior spinal fusion. Patient doing well post operatively. Pain well controlled. O/E HS 1+2, no murmurs, Chest CTAB, Abd SNT A/P No change to plan above. Thank you for the consult, medical team will review labs with patient tomorrow. History of Present Illness Reason for Consultation: medical management Requesting Physician: DR. Norman Attending Physician: Aime Norman, History of Present Illness 50 YOF with past medical history of: DMII, Depression, HLD, Iron deficiency, gastric bypass surgery, FREDDIE, HTN, Seasonal allergies, Asthma. Patient is POD #0 from lumbar removal of hardware and exploration with decompression and thoracolumbar fusion at T12-L2 performed by Dr. Norman. EBL was 200 patient underwent intubation and general anesthesia. Hospitalist service was consulted for medical management. Patient was evaluated in her room postoperatively. Patient denies any changes or infections since her medical clearance on 06/02/21. Patient is briskly awake, with some mild nausea without vomiting at this time. Overall her she is on room air with good pulse oximetry and air movement. BP and HR within normal ranges and her pain is controlled. Medication reviewed with patient noting she is on Trileptal 450 PO BID. For her Asthma she reports only having to use her Albuterol 1-2 times per year. She is on seasonal allergy maintenance with Fetzima and has brought this to the hosptial as well- NF order placed to continue she can take home dose. Will order her CPAP 9CM H20 for her FREDDIE to be worn while sleeping and at night. She had recall of her device and has not had since the fall of 2020 but reports compliance prior. Jardiance stopped and pharmacy glycemic consult is already placed. Recommendations - Discontinued Hydroxyzine, Ativan to avoid oversedation/ QT prolongation with multiple other agents - CPAP ordered for napping and sleeping at night- patient educated for need while receiving increase in sedating medications/narcotics - Scheduled her Famotidine while on Decadron - she was previously on PPI but stopped- can add back in H2 not effective - Follow nausea and oral intake - Labs in morning- already ordered - Pharmacy glycemic control consult already in place. - Added home Statin- Rosuvastatin 10mg PO daily Allergies Allergy/AdvReac Type Severity Reaction Status Date / Time fremanezumab-vfrm Allergy Unknown Rash Verified 06/10/21 06:36 [From enosiXovy Autoinjector] galcanezumab-gnlm Allergy Unknown Rash Verified 06/10/21 06:36 [From Emgality Pen] latex Allergy Unknown Rash, itchy Verified 06/10/21 06:36 simvastatin Allergy Unknown Unknown Verified 06/10/21 06:36 milk AdvReac Unknown GI issues Verified 06/10/21 06:36 Dust Allergy Unknown SOB, itchy Uncoded 06/10/21 06:36 Home Medications Medication Instructions Recorded Confirmed Type Botox 1 dose IM DIRECTED 12/03/19 06/10/21 History Probiotic 1 cap PO TID 12/03/19 06/10/21 History albuterol sulfate 90 mcg/actuation 1 inh INHALATION QID PRN 12/03/19 06/10/21 History aerosol inhaler ascorbic acid (vitamin C) 500 mg 500 mg PO QAM 12/03/19 06/10/21 History tablet (Vitamin C) buspirone 15 mg tablet 15 mg PO TID 12/03/19 06/10/21 History calcium 600 mg capsule 600 mg PO BID 12/03/19 06/10/21 History cholecalciferol (vitamin D3) 25 25 mcg PO QAM 12/03/19 06/10/21 History mcg (1,000 unit) capsule (Vitamin D3) empagliflozin 10 mg tablet 10 mg PO QAM 12/03/19 06/10/21 History (Jardiance) levomilnacipran 120 mg capsule,24 140 mg PO QAM 12/03/19 06/10/21 History hr,extended release (Fetzima) magnesium 500 mg tablet 500 mg PO HS 12/03/19 06/10/21 History montelukast 10 mg tablet 10 mg PO QAM 12/03/19 06/10/21 History (Singulair) oxcarbazepine 300 mg tablet 300 mg PO BID 12/03/19 06/10/21 History (Trileptal) potassium chloride 20 mEq 20 meq PO BID 12/03/19 06/10/21 History tablet,extended release spironolactone 25 mg tablet 25 mg PO BID 12/03/19 06/10/21 History (Aldactone) acetaminophen 500 mg tablet 500 mg PO Q6H PRN 05/21/21 06/10/21 History fluticasone propionate 45 2 puff INHALATION BID 05/21/21 06/10/21 History mcg-salmeterol 21 mcg/actuation HFA inhaler (Advair HFA) multivitamin 1 tab PO QAM 05/21/21 06/10/21 History oxcarbazepine 150 mg tablet 150 mg PO BID 05/21/21 06/10/21 History (Trileptal) oxycodone 5 mg tablet 5 mg PO Q6H PRN #30 tab 06/11/21 Rx tramadol 50 mg tablet 50 mg PO Q6H PRN #30 tab 06/11/21 Rx Patient History Medical History (Updated 06/10/21 @ 12:44 by SHANNAN Yates) Anxiety Stable and controlled Asthma Stable and controlled Bipolar disorder Chronic back pain Depression DM type 2 (diabetes mellitus, type 2) NIDDM Fatty liver Follows with liver specialist- LFTs stable Fibromyalgia Stable Hiatal hernia History of DVT (deep vein thrombosis) CHARO (2016)- felt r/t picc line - was on AC x months - no issues x years since being off AC History of kidney stones No current issues Hyperlipemia Kidney stones Migraines Sleep apnea Temporomandibular joint disorder No locking Surgical History History of abdominoplasty History of cholecystectomy History of colonoscopy History of cystoscopy with stone extraction History of esophagogastroduodenoscopy (EGD) History of foot surgery Rt History of hysterectomy with unilateral oophorectomy History of lumbar surgery x2 L2-L3 decompression/fusion, L3-S1 hardware removal (12/24/19): Grade 1 view, MAC#3, DVL x1 atraumatic at [facility] History of lumpectomy of left breast History of myringotomy BMT History of tonsillectomy History of tooth extraction History of umbilical hernia repair Hx of fusion of cervical spine ROM WNL Post-operative nausea and vomiting S/P PICC central line placement removed (had for infection following back surgery) Family History Father Diabetes Mother Diabetes Grandmother (Paternal) Diabetes Grandfather (Paternal) Colon cancer Social History Smoking Status: Never smoker Second Hand Exposure: Yes; Hx Alcohol Use: No Hx Substance Use: No Preferred Language: Ukrainian Communication Ability: Effective Bioinformatics Computer Scientist Required: No Beliefs That Will Affect Care: None marital status: Current Living Situation: Spouse Current Living Situation Comment: and children current occupational status: disabled Feels Safe at Home: Yes Assistive Devices: Denture - Upper and Walker Review of Systems Review of Systems: REVIEW OF SYSTEMS: Constitutional: No fever, sweats or chills Eyes: No diplopia, no worsening or blurred vision ENT: normal hearing, no trouble swallowing Respiratory: (+) seasonal allergies, worse in winter/cold air, FREDDIE, No cough, sputum, dyspnea at rest or on exertion Cardiovascular: No chest pain, tightness or palpitations Abdomen: No pain, nausea, vomiting, diarrhea or constipation Musculoskeletal: (+) back pain Neurologic: No weakness, numbness/tingling, or balance problems Psychiatric: No anxiety or depression Skin: No rash or itch Physical Exam Physical Exam: PHYSICAL EXAM: General: awake, alert, comfortable Head: Normocephalic, atraumatic ENT: PERRLA, EOMI, no pharyngeal exudate, mucous membranes dry Neuro: AAO x 3, speech clear and appropriate, strength intact bilaterally 5/5, sensation intact and equal all extremities and dermatomes, no pronator drift Chest: equal rise and fall of the chest, no accessory muscle use, no heaves or thrills, Clear to auscultation, on room air, Cardiac: Regular rate and rhythm, skin warm dry, cap refill <3 seconds, peripheral pulses +2 no JVD, no murmur, no edema, GI: NABS x 4 quadrants, soft, nontender to palpation, no rebound, guarding or tenderness : Rdz to gravity draining light johan urine MSK: incision without strikethrough, no bruising or hematoma Psych: Normal mood and affect Skin: no rash or erythema Results & Data Results & Data ([facility]) Vital Signs (Past 12 Hours) Vital Signs Temp Pulse Pulse Resp BP BP Pulse Ox 06/10/21 11:52 36.4 C L 84 16 118/72 97 06/10/21 11:30 36.5 C 92 H 18 130/66 98 06/10/21 11:00 36.3 C L 99 H 16 135/79 99 06/10/21 10:40 36.5 C 84 12 149/71 H 99 06/10/21 10:30 86 15 137/70 100 06/10/21 10:20 84 13 136/70 100 06/10/21 10:10 92 H 18 138/74 100 06/10/21 10:03 36.1 C L 88 13 130/52 L 100 06/10/21 06:29 37.1 C 89 20 104/73 100 Laboratory Results Abnormal lab results 06/10/21 06/10/21 06/10/21 Range/Units 06:18 06:24 10:04 POC Glucose 128 H 139 H (70-99) mg/dl Crossmatch See Detail 06/10/21 Range/Units 11:54 POC Glucose 186 H (70-99) mg/dl Crossmatch Diagnostic Findings Lumbar Spine X-Ray 06/10/21 07:45 FL lumbar spine 2-3V CLINICAL HISTORY: T11-L2 decompression and fusion COMPARISON STUDY: None. FLUOROSCOPY TIME: 26 seconds. FINDINGS: 3 fluoroscopic spot images of the lumbar spine demonstrate posterior decompression and fusion from T12 through L3 with pedicle screws and rods. The hardware appears intact. IMPRESSION: Fluoroscopic assistance provided for T12-L3 posterior decompression and fusion. ACT 112: Negative or not required by law. Electronically signed by: James Varela M.D. 06/10/2021 9:47 AM ECG Additional Comments: 27-MAY-2021 11:13:34 Normal sinus rhythm Nonspecific ST abnormality Poor R wave progression, consider anterior NM vs. lead placement vs. LVH Abnormal ECG When compared with ECG of 11-DEC-2019 13:54, Premature ventricular complexes are no longer Present PG Care Time/CCT Total # of Minutes Spent Total Time Spent with Patient: Total time spent is greater than 50% in coordination of care (as documented) at patient's floor/unit and/or counseling patient: Coding Level of Care Code 94264 Inpt Consult Level 3 Diagnoses Neurogenic claudication due to lumbar spinal stenosis M48.062 Asthma J45.909 Depression F32.9 DM type 2 (diabetes mellitus, type 2) E11.9 Migraines G43.909 GERD (gastroesophageal reflux disease) K21.9 Sleep apnea G47.30 Hyperlipemia E78.5 History of DVT (deep vein thrombosis) Z86.718 HTN (hypertension) I10
[2021-06-10] MEDS: FAMOTIDINE 20 MG TAB PO SCH ×2 (13:00→21:03)
[2021-06-10] MEDS: FLUTICASONE/VILANTEROL 100/25MCG 14 PUFFS/INHALER INH SCH (13:00)
[2021-06-10] MEDS: ADVANCED PROBIOTIC 1250 MG CAPSULE PO SCH (13:01)
[2021-06-10] MEDS: busPIRone 15 MG TAB PO SCH ×2 (13:01→21:05)
[2021-06-10] MEDS: INSULIN ASPART PER UNIT SC SCH ×3 (13:02→21:05)
--- NOTE | 2021-06-10 13:24 | Pharmacy Report ---
Pharmacy Glycemic Short Note 2 - Date of Service June 10, 2021 - Glycemic Short BSG Results (Last 24 hours): 06/10/21 06/10/21 06/10/21 06:24 10:04 11:54 POC Glucose 128 H 139 H 186 H OUTPATIENT ANTIDIABETIC REGIMEN: * Jardiance 10mg PO qAM * HbA1c: 7.2% (05/27/21) ASSESSMENT: * Ms Zamora is a 50yo diabetic female POD 0 s/p spinal surgery w/ Dr Norman. * Pt received 8mg IV dexamethasone pre-op, which is expected to contribute to significant steroid-induced hyperglycemia. Pt will receive IV dxm daily x3 doses, beginning tomorrow morning. * Pt was initiated on SQ basal/bolus insulin immediately post-op. * It sounds like pt tolerated clear liquids for lunch, so anticipate that diet will advance to full liquids this evening. PLAN FOR INPATIENT GLYCEMIC CONTROL: * Hold outpatient oral diabetes medications * Basal insulin * Lantus 25 units SQ x1 dose post-op * Lantus per scale this evening (see EHR for more details) * Bolus insulin * NovoLog per scale ACHS or Q6hrs while NPO * Goal Range: Low 110 mg/dL - High 140 mg/dL * Correction Factor: 15 mg/dL/unit * Nutritional / Prandial insulin per carb ratio of 1 unit per 5 grams CHO consumed
[2021-06-10] MEDS: ceFAZolin 2000MG 2,000 MG/15 ML SYR IV SCH (16:48)
[2021-06-10] MEDS: SPIRONOLACTONE 25 MG TAB PO SCH (17:34)
[2021-06-10] MEDS ORDERED: OXcarbazepine 150 MG TABLET PO SCH ×2 (21:00)
[2021-06-10] MEDS: MAGNESIUM OXIDE 400 MG TAB PO SCH (21:04)
[2021-06-10] MEDS: OXcarbazepine 150 MG TABLET PO SCH (21:04)
[2021-06-10] MEDS: POTASSIUM CHLORIDE CRTAB 20 MEQ TABCR PO SCH (21:04)
[2021-06-10] MEDS: CALCIUM CARBONATE 1250MG TAB PO SCH (21:05)
[2021-06-10] MEDS: DOCUSATE SODIUM/SENNA 50/8.6MG TAB PO SCH (21:05)
[2021-06-10] MEDS: INSULIN GLARGINE SOLOSTAR 100 UNITS/ML 3 ML PEN SC SCH (21:06)
[2021-06-11] MEDS: ceFAZolin 2000MG 2,000 MG/15 ML SYR IV SCH (00:29)
[2021-06-11] MEDS: SODIUM CHLORIDE 0.9% 1000ML 1,000 ML IV SCH (00:30)
[2021-06-11] MEDS: CHECK SCOPOLAMINE PATCH PLACEMENT SCH ×4 (00:30→23:56)
[2021-06-11] MEDS: ONDANSETRON 4 MG OD TAB PO PRN (03:14)
[2021-06-11] MEDS: oxyCODONE HCL IR 5 MG TAB (IMMEDIATE RELEASE) PO PRN ×4 (03:14→20:34)
[2021-06-11] MEDS: POLYETHYLENE (MIRALAX) 17 GM PACK PO SCH ×4 (05:49→23:55)
[2021-06-11 07:23] LABS: Basophils # (auto) 0.03 K/uL (0-0.2); Basophils % (auto) 0.2 %; Eosinophils # (auto) 0.03 K/uL (0-0.5); Eosinophils % (auto) 0.2 %; Hematocrit (blood only) 40.5 % (37-47); Hemoglobin 12.5 g/dL (12.0-16.0); Immature Granulocytes # (auto) 0.06 K/uL (0.00-0.02); Immature Granulocytes % (auto) 0.4 %; Lymphocytes # (auto) 2.32 K/uL (1.2-3.4); Mean Corpuscular Hemoglobin 26.6 pg (25-34); Mean Corpuscular Hgb Conc 30.9 g/dL (32-36); Mean Corpuscular Volume 86.2 fL (80-100); Mean Platelet Volume 10.2 fL (7.4-10.4); Monocytes # (auto) 1.54 K/uL (0.11-0.59); Monocytes % (auto) 9.3 %; Neutrophils # (auto) 12.65 K/uL (1.4-6.5); Neutrophils % (auto) 75.9 %; Platelet Count 320 K/uL (130-400); RDW Coefficient of Variation 22.1 % (11.5-14.5); RDW Standard Deviation 67.3 fL (36.4-46.3); White Blood Count 16.63 K/uL (4.8-10.8)
[2021-06-11 07:44] LABS: BUN Creatinine Ratio 11.7 (10-20); Calcium 8.8 mg/dl (8.5-10.1); Creatinine Clr Calc Pharmacy 101.2 ml/min; Est GFR (African American) 105.1 ml/min; Est GFR (Non-African American) 90.7 ml/min
[2021-06-11] MEDS: FAMOTIDINE 20 MG TAB PO SCH ×2 (07:45→20:35)
[2021-06-11] MEDS: MONTELUKAST SODIUM 10 MG TABLET PO SCH (07:45)
[2021-06-11] MEDS: SPIRONOLACTONE 25 MG TAB PO SCH ×2 (07:45→17:42)
[2021-06-11] MEDS: OXcarbazepine 150 MG TABLET PO SCH ×2 (07:45→20:36)
[2021-06-11] MEDS: CHOLECALCIFEROL 1,000 UNITS 25 MCG TAB PO SCH (07:45)
[2021-06-11] MEDS: MULTIVITAMIN TAB PO SCH (07:45)
[2021-06-11] MEDS: ROSUVASTATIN CALCIUM 10 MG TAB PO SCH (07:45)
[2021-06-11] MEDS: CALCIUM CARBONATE 1250MG TAB PO SCH ×2 (07:46→20:37)
[2021-06-11] MEDS: POTASSIUM CHLORIDE CRTAB 20 MEQ TABCR PO SCH ×2 (07:46→20:36)
[2021-06-11] MEDS: ADVANCED PROBIOTIC 1250 MG CAPSULE PO SCH (07:46)
[2021-06-11] MEDS: dexAMETHasone 6 MG in SYRINGE 0 ML IV SCH (07:46)
[2021-06-11] MEDS: busPIRone 15 MG TAB PO SCH ×3 (07:46→20:35)
[2021-06-11 07:48] LABS: Anisocytosis Present
[2021-06-11] MEDS: LEVOMILNACIPRAN HCL PO SCH ×2 (08:02→08:03)
[2021-06-11] MEDS: FLUTICASONE/VILANTEROL 100/25MCG 14 PUFFS/INHALER INH SCH (08:02)
[2021-06-11] MEDS: INSULIN ASPART PER UNIT SC SCH ×4 (08:50→21:26)
[2021-06-11] MEDS ORDERED: ROSUVASTATIN CALCIUM 20 MG TAB PO SCH (09:00)
[2021-06-11] MEDS ORDERED: INSULIN GLARGINE SOLOSTAR 100 UNITS/ML 3 ML PEN SC SCH (09:00)
[2021-06-11] MEDS ORDERED: NON-FORMULARY MEDICATION (Empagliflozin [Jardiance] 10 mg Tablet) PO SCH (09:00)
[2021-06-11] MEDS ORDERED: LEVOMILNACIPRAN HCL PO SCH ×3 (09:00)
--- NOTE | 2021-06-11 13:35 | Hospitalist Progress Note ---
Date of Service June 11, 2021 Assessment & Plan (1) Neurogenic claudication due to lumbar spinal stenosis: Plan: S/p T12-L3 decompression and fusionPOD #1. Dr. Norman - Pain adequately controlled. Tolerating pain medication without ill effects. - Recommend continued postoperative pain management, PT/OT, incentive spirometry, and DVT prophylaxis--> all at discretion of primary team - Patient does have a history of provoked DVT in the past (from a PICC line). I have encouraged ambulation. Added DVT prophylaxis per primary team (2) Asthma: Plan: Well controlled per patient with very minimal use of her SABAL - Continue REJI- Continue ICS/LABA - Continue montelukast - Continue Fetzima for allergic component as well (3) Sleep apnea: Plan: CPAP 9CM H20- ordered for napping and HS - use while receiving further narcotics and sedating medications that are centrally acting (4) Hyperlipemia: Plan: Rosuvastatin 10mg home dose ordered (5) HTN (hypertension): Plan: Continue with home spironaolactone as long as euvolemic and hemodyanmically stable through PM - scheduled for evening 06/10/21 - EF from ECHO 04/26 with EF 65 % normal LV and RV (6) Depression: Plan: -Continue Trileptal- patient dose verified by her as 450mg PO BID - Continue Buspirone 15 mg PO TID - Further avoid other sedating benzos or QT prolonging medications unless needed - As per recs- discontinued prns (7) DM type 2 (diabetes mellitus, type 2): Plan: Hold Jardiance - Pharmacy consult placed - agree follow (8) GERD (gastroesophageal reflux disease): Plan: Previously on PPI- will schedule her Famotidine q12 - she stopped at recs from PCP as she was on for prolonged time - Follow- while she is on Decadron and any further NSAIDS- (9) Migraines: Plan: Well controlled- continue trileptal as above (10) History of DVT (deep vein thrombosis): Plan: provoked--from PICC line placement- completed her anticoa no further history of clots endorsed Plan: We will sign off on this patient. Please do not hesitate to reconsult should a problem arise. Thank you for allowing us to participate in the care of this patient. Plan of care will be discussed with Dr. Ferrer. Further orders as warranted. Admission and Anticipated Discharge Date Admission Date: June 10, 2021 Subjective Patient seen on daily rounds today. She is POD #1 s/p lumbar decompression with fusion for neurogenic claudication. Vocalizes no complaints or concerns. Currently pain is controlled with prescribed pain medication. Denies ill effects from pain medication. Has not had a bowel movement yet but is urinating without difficulty. Denies fevers, chills, chest pain, shortness of breath, abdominal pain, nausea or vomiting. Was able to independently shower today and is ambulating without difficulty. Review of Systems Review of Systems: All systems reviewed and are unremarkable except as noted in HPI and below Denies fevers, chills, headache, nasal congestion, sore throat, cough, chest pain, shortness of breath, palpitations, orthopnea, PND, abdominal pain, nausea, vomiting, diarrhea, constipation, dysuria, hematuria, frequency, back pain, joint pain or swelling, easy bruising or bleeding, skin lesions or rashes. Physical Exam Physical Exam: General: Resting comfortably in her hospital bed (and ambul ating in her room). NAD. HEENT: Head is AT/NC. Buccal mucosa is moist and pink Neck: No JVD. Negative hepatojugular reflex Cardiac: RRR with 1/6 WING heard best at the LSB at the base Lungs: CTA without W/R/R Abdomen: Normoactive X4. Soft and nontender in all quadrants. Extremities: No peripheral clubbing cyanosis or edema. Surgical dressing dry and intact. Indwelling JAYME drain noted. Neurovascular intact to lower extremities bilaterally. Neuro: A&O X4. Cranial nerves II through XII are grossly intact. No focal neuro deficits Skin: No obvious skin lesions or rashes Psych: Appropriate affect. Pleasant and cooperative Results & Data Results & Data ([facility]) Vital Signs (Past 12 Hours) Vital Signs Temp Pulse Pulse Resp BP BP Pulse Ox 06/11/21 07:43 37.4 C 86 16 146/82 H 98 06/11/21 03:04 37.2 C 98 H 16 138/75 97 PG Care Time/CCT Total # of Minutes Spent Total Time Spent with Patient: Total time spent is greater than 50% in coordination of care (as documented) at patient's floor/unit and/or counseling patient: Coding Level of Care Code 51032 Inpt Consult Level 3 Diagnoses Neurogenic claudication due to lumbar spinal stenosis M48.062 Asthma J45.909 Sleep apnea G47.30 Hyperlipemia E78.5 HTN (hypertension) I10 Depression F32.9 DM type 2 (diabetes mellitus, type 2) E11.9 GERD (gastroesophageal reflux disease) K21.9 Migraines G43.909 History of DVT (deep vein thrombosis) Z86.718
--- NOTE | 2021-06-11 13:58 | Pharmacy Report ---
Pharmacy Glycemic Short Note 2 - Date of Service June 11, 2021 - Glycemic Short BSG Results (Last 24 hours): 06/10/21 06/10/21 06/11/21 17:11 20:40 06:38 Glucose 101 H POC Glucose 148 H 125 H 06/11/21 06/11/21 08:06 11:51 Glucose POC Glucose 109 H 171 H OUTPATIENT ANTIDIABETIC REGIMEN: * Jardiance 10mg PO qAM * HbA1c: 7.2% (05/27/21) ASSESSMENT: 06/12 * Blood sugars well controlled on basal bolus insulin and IV Steroids, continue dosing, decrease doses after IV steroids complete 06/11 * Ms Zamora is a 50yo diabetic female POD 0 s/p spinal surgery w/ Dr Norman. * Pt received 8mg IV dexamethasone pre-op, which is expected to contribute to significant steroid-induced hyperglycemia. Pt will receive IV dxm daily x3 doses, beginning tomorrow morning. * Pt was initiated on SQ basal/bolus insulin immediately post-op. * It sounds like pt tolerated clear liquids for lunch, so anticipate that diet will advance to full liquids this evening. PLAN FOR INPATIENT GLYCEMIC CONTROL: * Hold outpatient oral diabetes medications * Basal insulin * Lantus 25 units SQ AM * Lantus per scale HS: BSG < 120 = 0 units, BSG 120-180 = 5 units, BSG > 180 = 10 units * Bolus insulin * NovoLog per scale ACHS or Q6hrs while NPO * Goal Range: Low 110 mg/dL - High 140 mg/dL * Correction Factor: 15 mg/dL/unit * Nutritional / Prandial insulin per carb ratio of 1 unit per 5 grams CHO consumed
--- NOTE | 2021-06-11 14:51 | Orthopedic Progress Note ---
Date of Service June 11, 2021 Assessment & Plan (1) Neurogenic claudication due to lumbar spinal stenosis: Plan: Patient will continue physical therapy regarding ambulation. In light of her worsening cervical spine issues and history of cervical spine surgery and in fection would like to obtain updated imaging. Admission and Anticipated Discharge Date Admission Date: June 10, 2021 Subjective Back pain controlled leg pain improved. She is complaining of significant numbness and tingling in the bilateral shoulder blades and arms. This been present for several weeks but worse after surgery. Physical Exam Physical Exam: Patient is in the chair at the bedside. Is good strength testing. She has negative Tinel's sign over the bilateral cubital tunnel regions. Negative Phalen sign. Good strength testing to upper extremities. Results & Data ([facility]) Vital Signs (Past 12 Hours) Vital Signs Temp Pulse Pulse Resp BP BP Pulse Ox 06/11/21 07:43 37.4 C 86 16 146/82 H 98 06/11/21 03:04 37.2 C 98 H 16 138/75 97
--- NOTE | 2021-06-11 17:08 | Magnetic Resonance Report ---
CERVICAL SPINE MRI HISTORY: neck and arm pain TECHNIQUE: Multiplanar multisequence MRI of the cervical spine was performed without the use of contr ast. COMPARISON STUDY: None. FINDINGS: Motion artifact. Straightening of the cervical spine. Anterior cervical discectomy and fusi on from C5 through T1. Mild disc space narrowing at C4-C5. Severe disc space narrowing at T1-T2. The visualized posterior fossa is unremarkable. No fracture or subluxation. Prevertebral soft tissues and the C1-C2 interval are intact. The cervical spinal cord demonstrates a normal signal intensity. C2-C3: No significant central canal or neural foraminal narrowing. C3-C4: No significant central canal or neural foraminal narrowing. C4-C5: No significant central canal narrowing. There is mild left-sided neural foraminal narrowing du e to the uncovertebral hypertrophy. The neural foraminal narrowing. C5-C6: Small posterior disc osteophyte resulting in partial effacement of the anterior thecal sac wit hout cord deformity. Therefore, no significant central canal or neural foraminal narrowing. C6-C7: Posterior disc osteophyte resulting in partial effacement of the anterior thecal sac without s ignificant cord deformity. Therefore, no significant central canal narrowing. There is mild bilateral neural foraminal narrowing due to the uncovertebral hypertrophy. C7-T1: Small posterior disc osteophytes without significant central canal narrowing. There is severe right and moderate left neural foraminal narrowing due to the uncovertebral hypertrophy. T1-T2: Broad-based posterior disc bulge without significant central canal narrowing. There is no sign ificant neural foraminal narrowing. IMPRESSION: 1. Postoperative changes consistent with prior C5-T1 anterior cervical discectomy and fusion. 2. Straightening of cervical spine. 3. Mild multilevel degenerative changes as described above without significant central canal narrowin g. 4. No fracture or subluxation. 5. Multilevel bilateral neural foraminal narrowing as described above. ACT 112: Negative or not required by law. Electronically signed by: James Varela M.D. 06/11/2021 5:06 PM
--- NOTE | 2021-06-11 17:11 | XRay Report ---
XR cervical spine 2 or 3V CLINICAL HISTORY: neck and arm pain COMPARISON STUDY: Cervical spine MRI 06/11/2021. FINDINGS: Straightening of the cervical spine. The cervical spine is visualized from C1 through the s uperior endplate of T1. No fracture or subluxation. Prior C5-C7 ACDF. The hardware appears intact. No abnormal periprosthetic lucency. Prevertebral soft tissues and the C1-C2 interval are maintained. Mi [id number]-[id number] facet degenerative changes within the cervical spine most pronounced at the lower cerv ical spine. IMPRESSION: 1. Prior C5-C7 ACDF. The hardware appears intact. 2. Straightening of the cervical spine. 3. Mild to moderate facet degenerative changes. ACT 112: Negative or not required by law. Electronically signed by: James Varela M.D. 06/11/2021 5:10 PM
[2021-06-11] MEDS: MAGNESIUM OXIDE 400 MG TAB PO SCH (20:35)
[2021-06-11] MEDS: DOCUSATE SODIUM/SENNA 50/8.6MG TAB PO SCH (20:36)
[2021-06-11] MEDS: INSULIN GLARGINE SOLOSTAR 100 UNITS/ML 3 ML PEN SC SCH (21:26)
[2021-06-12] MEDS: ONDANSETRON 4 MG OD TAB PO PRN (03:11)
[2021-06-12] MEDS: POLYETHYLENE (MIRALAX) 17 GM PACK PO SCH (05:58)
[2021-06-12] MEDS: oxyCODONE HCL IR 5 MG TAB (IMMEDIATE RELEASE) PO PRN (08:03)
[2021-06-12] MEDS: CHECK SCOPOLAMINE PATCH PLACEMENT SCH (08:04)
[2021-06-12] MEDS: CALCIUM CARBONATE 1250MG TAB PO SCH (08:08)
[2021-06-12] MEDS: OXcarbazepine 150 MG TABLET PO SCH (08:08)
[2021-06-12] MEDS: ADVANCED PROBIOTIC 1250 MG CAPSULE PO SCH (08:08)
[2021-06-12] MEDS: MULTIVITAMIN TAB PO SCH (08:08)
[2021-06-12] MEDS: FAMOTIDINE 20 MG TAB PO SCH (08:08)
[2021-06-12] MEDS: SPIRONOLACTONE 25 MG TAB PO SCH (08:08)
[2021-06-12] MEDS: MONTELUKAST SODIUM 10 MG TABLET PO SCH (08:08)
[2021-06-12] MEDS: busPIRone 15 MG TAB PO SCH (08:08)
[2021-06-12] MEDS: POTASSIUM CHLORIDE CRTAB 20 MEQ TABCR PO SCH (08:08)
[2021-06-12] MEDS: ROSUVASTATIN CALCIUM 10 MG TAB PO SCH (08:08)
[2021-06-12] MEDS: CHOLECALCIFEROL 1,000 UNITS 25 MCG TAB PO SCH (08:08)
[2021-06-12] MEDS: FLUTICASONE/VILANTEROL 100/25MCG 14 PUFFS/INHALER INH SCH (08:08)
[2021-06-12] MEDS: LEVOMILNACIPRAN HCL PO SCH ×2 (08:09)
[2021-06-12] MEDS: dexAMETHasone 6 MG in SYRINGE 0 ML IV SCH (08:10)
[2021-06-12] MEDS: INSULIN ASPART PER UNIT SC SCH (09:13)
[2021-06-12] MEDS ORDERED: INSULIN GLARGINE SOLOSTAR 100 UNITS/ML 3 ML PEN SC SCH (09:15)
--- NOTE | 2021-06-12 13:27 | Discharge Summary ---
Date of Service June 12, 2021 Admission HPI Per Admitting Provider This is a 50-year-old female who presents with marked clinical status with study back and bilateral leg pain. Failing course of nonoperative care she is here for surgical invention. Principal Diagnosis Lumbar spinal stenosis with neurogenic claudication Discharge Data Allergies Allergy/AdvReac Type Severity Reaction Status Date / Time fremanezumab-vfrm Allergy Unknown Rash Verified 06/10/21 06:36 [From Ajovy Autoinjector] galcanezumab-gnlm Allergy Unknown Rash Verified 06/10/21 06:36 [From Emgality Pen] latex Allergy Unknown Rash, itchy Verified 06/10/21 06:36 simvastatin Allergy Unknown Unknown Verified 06/10/21 06:36 milk AdvReac Unknown GI issues Verified 06/10/21 06:36 Dust Allergy Unknown SOB, itchy Uncoded 06/10/21 06:36 Consultations 06/10/21 11:11 Consult Hospitalist Routine Procedures Performed Operation Date: 06/10/21 07:45 Actual Procedures p T12-L3 Decompression and Fusion, Spinal Cord Monitoring(Not Applicable) - Aime Norman DO Ordered Studies 06/10/21 07:45 FL lumbar spine 2-3V Routine 06/11/21 14:51 MR cervical spine wo con Routine Hospital Course (1) Neurogenic claudication due to lumbar spinal stenosis: Patient went thoracolumbar decompression fusion tolerated this well second orthopedic for sharply. Postop. When she was up and ambulating progressed to postop day #2. Pain well controlled. Excellent strength testing. Subsequently discharged home with her drain. Discharge orders instructions on the chart for further review. Total Time Total Time Spent Total Time Spent (In Minutes): 20 minutes Discharge Plan Discharge Items Patient Disposition: Home - Self-Care Reason For Visit: Intervertebral Disc Disorders with Radiculopathy L Discharge Diagnosis: Lumbar spinal stenosis with neurogenic claudication Activity: Per Instructions section Non-emergency contact: Primary Care Provider Call non-emergency contact if: you have any medication questions Follow-up/Referrals: Rosa Otto DO [Outside Practitioners] - (This is the Patient's PCP. The patient will call the office to set up a hospital f/u visit within 7-10 days. ) Diet: Regular Addtl Attending Provider Instructions: ACTIVITY RECOMMENDATIONS: SELF CARE INSTRUCTIONS AFTER THORACIC/LUMBAR FUSIONS 1. You may walk to your tolerance. It is good exercise for your legs and back. Expect some back and intermittent leg aches and pains. 2. You may perform "counter-top" level activities (make a sandwich, paula with a project, etc.). 3. No bending or lifting of more than 10 pounds or back twisting of any nature (roll like a log when turning in bed). 4. You may ride in a car for 20-30 minutes at a time. No driving until after your first visit with your doctor. 5. Frequent changes of position and restricting sitting to 30 minutes at a time will help limit the amount of back spasms and stiffness you may experience. 6. You may discontinue the use of ambulatory aids (cane, crutches, etc.) once your strength and confidence allow. 7. You may guitar instructor the shower and let water strike your incision when you arrive home at least once daily. Do not take a tub bath, sit in a hot tub or go into a swimming pool until after your first recheck in the office. SPECIAL CARE INSTRUCTIONS: VERY IMPORTANT TO READ AND REVIEW A. Your surgical incision has been closed with a cosmetic suture under the skin that will dissolve in about 6 weeks. In 14 days, you can use a pair of clean scissors and cut the suture that is left outside of the skin at the ends of your incision. 1. The small skin tapes can be removed 7 days after surgery if they have not fallen off by that point. 2. You may keep the wound open to air as much as possible to promote healing after post-op day number 5 unless told otherwise by your doctor. 3. If you think the wound looks like it is becoming infected (redness or worsening drainage) and/or you are experiencing fever, chill or worsening back pain and muscle spasms, contact the office so that we may evaluate you as soon as possible. B. Complications are uncommon, but please contact us if you have any signs or symptoms of: 1. wound infection (fever higher than 102.5 degrees F, redness, separation of wound, drainage, or increasing pain from the incision) 2. blood clots in legs (pain, swelling, redness and warmth in legs) 3. urinary tract infection (fever higher than 102.5 degrees F, burning upon urination or increased frequency of urination) 4. nerve problems (inability to walk on your toes or heels, numbness, loss of bowel or bladder control) 5. any other symptoms that concern you C. Please call the office at if you have any concerns or questions about your operation or recovery. D. No smoking! Smoking drastically decreases the chance of a solid fusion. E. Do not take any anti-inflammatory medications (Indocin, Advil, Motrin, Aspirin, Naprosyn, etc.) as these may inhibit the chance of a solid fusion. Tylenol is okay to take for pain. MANAGING PAIN AFTER SPINAL SURGERY 1. Narcotic medication is intended for short-term use and will be provided for surgical pain. Surgical pain usually lasts for a period of 4-6 weeks. Narcotic medication includes Percocet, Vicodin, Darvocet, Tylenol #3 or Lortab. 2. Longer-term pain is more appropriately treated with non-narcotic medication such as Tylenol ES. 3. Muscle spasm is not appropriately treated with narcotics. Muscle relaxers such as Soma, Flexeril or Skelaxin can be used along with Tylenol ES. 4. Remember that we all live with some "aches and pains". This is not unusual or uncommon after an injury or as we get older. a. Back pain is expected and may include muscle spasms for 4 to 6 weeks after surgery. The pain should gradually improve. If the pain worsens for no apparent reason, please contact the office. b. Intermittent leg pain may also be experienced and should not be concerned about unless it worsens for no apparent reason. If so, please contact the office. 5. We will provide appropriate medication within the normal guidelines of their prescribed use. We will also be very cautious and aware of potential abuse and extended duration of patients' medication needs. a. Pain medications are for your comfort and to assist with sleep and rest so that the tissue can heal. They are not provided in order to return to normal activity and should not be used through the day. To do so or worsening pain at night can result from ongoing tissue damage and development of tolerance to the prescribed medicine. 6. Please allow 2-3 days to process refills. Prescriptions will not be mailed but must be picked up at the office. FOLLOW UP VISIT: Keep your scheduled follow-up appointment. Any questions, please call the office at . Pending Studies at Discharge: No Stand-Alone Forms: [facility], Opioid Pain Management, Smoking Cessation Medications and DC Order Prescriptions: New tramadol 50 mg tablet 50 mg PO Q6H PRN (Reason: pain, moderate) Qty: 30 RF: 0 oxycodone 5 mg tablet 5 mg PO Q6H PRN (Reason: pain, severe) Qty: 30 RF: 0 Continued calcium 600 mg Capsule 600 mg PO BID RF: 0 magnesium 500 mg Tablet 500 mg PO HS RF: 0 oxcarbazepine [Trileptal] 300 mg Tablet 300 mg PO BID RF: 0 spironolactone [Aldactone] 25 mg Tablet 25 mg PO BID RF: 0 ascorbic acid (vitamin C) [Vitamin C] 500 mg Tablet 500 mg PO QAM RF: 0 montelukast [Singulair] 10 mg Tablet 10 mg PO QAM RF: 0 albuterol sulfate 90 mcg/actuation Hfa Aerosol Inhaler 1 inh INHALATION QID PRN (Reason: sob) RF: 0 buspirone 15 mg Tablet 15 mg PO TID RF: 0 cholecalciferol (vitamin D3) [Vitamin D3] 25 mcg (1,000 unit) Capsule 25 mcg PO QAM RF: 0 Fetzima 120 mg Capsule,Extended Release 24 Hr 140 mg PO QAM RF: 0 potassium chloride 20 mEq Tablet Extended Release 20 meq PO BID RF: 0 Jardiance 10 mg Tablet 10 mg PO QAM RF: 0 Botox 1 dose IM DIRECTED RF: 0 Probiotic 1 cap PO TID RF: 0 oxcarbazepine [Trileptal] 150 mg Tablet 150 mg PO BID RF: 0 acetaminophen 500 mg Tablet 500 mg PO Q6H PRN (Reason: Pain) RF: 0 multivitamin Tablet 1 tab PO QAM RF: 0 Advair HFA 45-21 mcg/actuation Hfa Aerosol Inhaler 2 puff INHALATION BID RF: 0 Discharge Orders: Discharge Order (Routine); Ordered 06/12/21 Ordered By: Aime Nunez/Other Patient Handouts: DVT Post Op Prevention Admission Data Admit Date/Time: 06/10/21 09:48 Attending Provider: Aime Norman Admit Provider: Aime Norman Primary Care Provider: PCP,NO Other Providers: Donald Ferrer Other Interventions: Discharge Summary Assessment (RN) Last Done: 06/12/21 11:31
== END 2021-06-12 12:17 | disposition home or self-care (01) | DRG 455 ==
LOC: ASU 05:59 → 3E 09:48